=== PATIENT | female | born 1985 | race Caucasian/White ===

== ENCOUNTER 2019-10-18 15:21 | Emergency (ER) | payer BC ==
[2019-10-18] MEDS ORDERED: Sodium Chloride 0.9% 1,000 ML IV ONE (16:38)
[2019-10-18] MEDS ORDERED: Acetaminophen 500 MG Tab PO ONE (16:40)
[2019-10-18] MEDS ORDERED: Oseltamivir 75 MG Cap PO ONE (16:40)
[2019-10-18 17:35] LABS: BLOOD UREA NITROGEN,BUN 7 mg/dL (7.0-18.0); CARBON DIOXIDE,CO2 28.3 mmol/L (21.0-32.0); CHLORIDE,CL 98 mmol/L (98-107); GLUCOSE RANDOM 91 mg/dL (74-106); POTASSIUM,K 3.4 mmol/L (3.5-5.1); SODIUM,NA 136 mmol/L (136-145)
--- NOTE | 2019-10-18 18:49 | EDM.PDOC ---
ED [facility] GENERAL MEDICAL PROBLEM - General Chief Complaint: General Stated Complaint: 6 WEEKS PREG. COUGH FEVER Time Seen by Provider: 10/18/19 15:39 - History of Present Illness INITIAL COMMENTS - FREE TEXT/NARRATIVE: HPI 34-year-old female who was 6 weeks presents for evaluation of 3 days of fever, myalgias, mild cough, malaise, noted a brief period of dark brown spelling this morning. No influenza vaccine this year. Continues to take PO adequately produce light urine at baseline. Has taken no antipyretics. No history of multiple errors , PID, or IVF, notes one prior miscarriage, no other pregnancies. M/S/F/SocHx notable for: please see HPI; remainder reviewed with patient and in chart. ROS: Negative constitutional, eye, cardiovascular, pulmonary, GI, , MSK, skin , neurologic, psychiatric, endocrine unless noted in the HPI. Exam HR 114, RR 20, BP 123/72, T 36.1C, SaO2 97% on room air. Gen: Pleasant, non-toxic appearing, resting comfortably. HEENT: Normocephalic, atraumatic. * Eyes - Bilateral eyes without injection, swelling, or discharge, no proptosis or periorbital erythema, swelling, warmth, or tenderness. * Mouth - Anterior oropharynx with MMM, no lesions appreciated, floor of the mouth is soft and without swelling. Posterior oropharynx without swelling, exudate, erythema, lesions, or post-nasal drip, uvula midline. * Nose - Nares without crusting or discharge. * Neck - Neck supple without posterior anterior cervical chain lymphadenopathy bilaterally. Resp: Clear to auscultation bilaterally, normal work of breathing without accessory muscle usage. Card: Regular rate and rhythm with no murmurs, rubs or gallops. Extremities warm and well perfused. GI: Non-tender to palpation throughout all quadrants, no masses or organomegaly appreciated. : suprapubic tenderness to palpation. MSK: No visible deformities, strength and tone without visually appreciable deficit. Neuro: alert and oriented 3, no facial asymmetry, vision and hearing WNL. Heme/Lymph: Deferred Skin: Normal color with no visible lesions (other than noted above). Psych: Mood and affect appropriate. Labs / Imaging (pertinent): influenza B positive, influenza a negative, negative strep screen. WBC 4.09, Hb 14.9, Na 136, K 3.4 hCG 4370 UA - moderate occult blood, positive nitrite, negative leukocyte esterase, 3+ bacteria, rare epithelial cells, CXR: pending. Blood type: A+ MDM Previous chart, nursing note, and vitals reviewed. A: 34-year-old female who was 6 weeks presents for evaluation of 3 days of fever, myalgias, mild cough, malaise, noted a brief period of dark brown spelling this morning. DDx: influenza, parainfluenza virus, viral rhinosinusitis, bacterial pneumonia, septicemia. Evaluation: patient with mild tachycardia, otherwise appears well compensated ( by history, exam, and reported clinical trajectory). Influenza positive, while the patients had greater than 48 hours of symptoms Tamiflu is still indicated as she is . Patient was given 1 L normal saline, 1 g acetaminophen, and 75 mg Tamiflu which she tolerated well. History and exam without clear evidence of sepsis or clinically significant systemic symptoms, chest x-ray ordered and declined by patient (patient with insight and awareness as to risk versus benefits and made an informed decision to decline imaging). UA was notable for infection, patient is without flank pain, leukocytosis, dysuria, or frequency, as such suspect asymptomatic colonization, Keflex prescribed. With respect to spotting patient currently without any abdominal discomfort, no active spotting , and hCG that is below the detection threshold for transabdominal ultrasound ( which was noncontributory as noted below). Patient aware of limitations of evaluation, discuss pelvic exam, patient declined exam, given the absence of active symptomatology and available follow-up. 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 Impression: Fever, myalgias, cough.Influenza. (please reference below for remainder of encounter information) Focused Ultrasound Indication: (Evaluation of with abdominal pain vs Evaluation of with bleeding.) Exam type (limited): Transabdominal, initial Views obtained: Transabdominal sagittal and transabdominal transverse. Findings: uterus without clearly identifiable intrauterine . Interpretation: no definite intrauterine . Rib Cage Pain Score (Numeric/FACES): 7 - Related Data Allergies Allergy/AdvReac Type Severity Reaction Status Date / Time promethazine [From Phenergan] Allergy Hives Verified 10/18/19 15:36 Home Meds: Home Meds Cephalexin [Keflex] 500 mg PO QID 10 Days #40 capsule 10/18/19 [Rx] Oseltamivir [Tamiflu] 75 mg PO BID #9 cap 10/18/19 [Rx] Pnv No.95/Ferrous Fum/Folic AC [ Caplet] 1 each PO DAILY 10/18/19 [ History] Past Medical History Neurological History: Reports: MS - Infectious Disease History Infectious Disease History: Reports: Chicken Pox, Mononucleosis Social & Family History - Family History Family Medical History: Noncontributory - Tobacco Use Smoking Status *Q: Former Smoker Used Tobacco, but Quit: Yes Month/Year Tobacco Last Used: 2018 - Caffeine Use Caffeine Use: Reports: None - Recreational Drug Use Recreational Drug Use: No ED ROS GENERAL - Review of Systems Review Of Systems: See Below ED EXAM, GENERAL - Physical Exam Exam: See Below Course - Vital Signs Last Recorded V/S: Last Vital Signs Temp 36.1 C 10/18/19 15:37 Pulse 114 H 10/18/19 15:37 Resp 20 10/18/19 15:37 BP 123/72 10/18/19 15:37 Pulse Ox 97 10/18/19 15:37 - Orders/Labs/Meds Orders: Active Orders 24 hr Category Date Time Status CULTURE STREP A CONFIRMATION [RM] Stat Lab 10/18/19 15:54 Results STREP SCRN A RAPID W CULT CONF [RM] Stat Lab 10/18/19 15:54 Results Labs: Laboratory Tests 10/18/19 10/18/19 10/18/19 Range/Units 17:05 17:05 17:05 WBC 4.09 (4.0-11.0) K/uL RBC 4.88 (4.30-5.90) M/uL Hgb 14.5 (12.0-16.0) g/dL Hct 43.5 (36.0-46.0) % MCV 89.1 (80.0-98.0) fL MCH 29.7 (27.0-32.0) pg MCHC 33.3 (31.0-37.0) g/dL RDW Std Deviation 44.6 (28.0-62.0) fl RDW Coeff of Janina 14 (11.0-15.0) % Plt Count 271 (150-400) K/uL MPV 10.10 (7.40-12.00) fL Neut % (Auto) 58.9 (48.0-80.0) % Lymph % (Auto) 21.5 (16.0-40.0) % [place] % (Auto) 19.6 H (0.0-15.0) % Eos % (Auto) 0.0 (0.0-7.0) % Baso % (Auto) 0.0 (0.0-1.5) % Neut # (Auto) 2.4 (1.4-5.7) K/uL Lymph # (Auto) 0.9 (0.6-2.4) K/uL [place] # (Auto) 0.8 (0.0-0.8) K/uL Eos # (Auto) 0.0 (0.0-0.7) K/uL Baso # (Auto) 0.0 (0.0-0.1) K/uL Nucleated RBC % 0.0 /100WBC Nucleated RBCs # 0 K/uL Sodium (136-145) mmol/L Potassium (3.5-5.1) mmol/L Chloride (98-107) mmol/L Carbon Dioxide (21.0-32.0) mmol/L BUN (7.0-18.0) mg/dL Creatinine (0.6-1.0) mg/dL Est Cr Clr Drug Dosing mL/min Estimated GFR (MDRD) ml/min Glucose (74-106) mg/dL Calcium (8.5-10.1) mg/dL HCG, Quant 4370.0 mIU/mL Urine Color Urine Appearance Urine pH (5.0-8.0) Ur Specific [place] (1.001-1.035) Urine Protein (NEGATIVE) mg/dL Urine Glucose (UA) (NEGATIVE) mg/dL Urine Ketones (NEGATIVE) mg/dL Urine Occult Blood (NEGATIVE) Urine Nitrite (NEGATIVE) Urine Bilirubin (NEGATIVE) Urine Urobilinogen (<2.0) EU/dL Ur Leukocyte Esterase (NEGATIVE) Urine RBC (0-2/HPF) Urine WBC (0-5/HPF) Ur Epithelial Cells (NONE-FEW) Urine Bacteria (NEGATIVE) Blood Type A POSITIVE 10/18/19 10/18/19 Range/Units 17:05 17:30 WBC (4.0-11.0) K/uL RBC (4.30-5.90) M/uL Hgb (12.0-16.0) g/dL Hct (36.0-46.0) % MCV (80.0-98.0) fL MCH (27.0-32.0) pg MCHC (31.0-37.0) g/dL RDW Std Deviation (28.0-62.0) fl RDW Coeff of Janina (11.0-15.0) % Plt Count (150-400) K/uL MPV (7.40-12.00) fL Neut % (Auto) (48.0-80.0) % Lymph % (Auto) (16.0-40.0) % [place] % (Auto) (0.0-15.0) % Eos % (Auto) (0.0-7.0) % Baso % (Auto) (0.0-1.5) % Neut # (Auto) (1.4-5.7) K/uL Lymph # (Auto) (0.6-2.4) K/uL [place] # (Auto) (0.0-0.8) K/uL Eos # (Auto) (0.0-0.7) K/uL Baso # (Auto) (0.0-0.1) K/uL Nucleated RBC % /100WBC Nucleated RBCs # K/uL Sodium 136 (136-145) mmol/L Potassium 3.4 L (3.5-5.1) mmol/L Chloride 98 (98-107) mmol/L Carbon Dioxide 28.3 (21.0-32.0) mmol/L BUN 7 (7.0-18.0) mg/dL Creatinine 0.7 (0.6-1.0) mg/dL Est Cr Clr Drug Dosing 87.87 mL/min Estimated GFR (MDRD) > 60.0 ml/min Glucose 91 (74-106) mg/dL Calcium 8.7 (8.5-10.1) mg/dL HCG, Quant mIU/mL Urine Color YELLOW Urine Appearance SLT CLOUDY Urine pH 6.0 (5.0-8.0) Ur Specific [place] 1.015 (1.001-1.035) Urine Protein NEGATIVE (NEGATIVE) mg/dL Urine Glucose (UA) NEGATIVE (NEGATIVE) mg/dL Urine Ketones NEGATIVE (NEGATIVE) mg/dL Urine Occult Blood MODERATE H (NEGATIVE) Urine Nitrite POSITIVE H (NEGATIVE) Urine Bilirubin NEGATIVE (NEGATIVE) Urine Urobilinogen 0.2 (<2.0) EU/dL Ur Leukocyte Esterase NEGATIVE (NEGATIVE) Urine RBC 0-1 (0-2/HPF) Urine WBC 0-1 (0-5/HPF) Ur Epithelial Cells RARE (NONE-FEW) Urine Bacteria 3+ H (NEGATIVE) Blood Type Meds: Medications Discontinued Medications Generic Name Dose Route Start Last Admin Trade Name Freq PRN Reason Stop Dose Admin Acetaminophen 1,000 mg 10/18/19 16:40 10/18/19 17:07 Tylenol Extra Strength PO 10/18/19 16:41 1,000 mg ONETIME ONE Administration Sodium Chloride 1,000 mls @ 1,000 mls/hr 10/18/19 16:38 10/18/19 17:07 Normal Saline IV 10/18/19 17:37 1,000 mls/hr .Bolus ONE Administration Oseltamivir Phosphate 75 mg 10/18/19 16:40 10/18/19 17:08 Tamiflu PO 10/18/19 16:41 75 mg ONETIME ONE Administration Departure - Departure Time of Disposition: 18:46 Disposition: Home, Self-Care 01 Clinical Impression: Influenza, UTI (urinary tract infection) - Discharge Information Prescriptions: Cephalexin [Keflex] 500 mg PO QID 10 Days #40 capsule Oseltamivir [Tamiflu] 75 mg PO BID #9 cap Referrals: Elvin Shah MD [Primary Care Provider] - Forms: ED Department Discharge Additional Instructions: You were in seen in the [facility] Emergency Department for evaluation of fever, cough, malaise, your found have influenza and were incidentally noted to have bacteria in your urine, you have been prescribed Tamiflu for your influenza, cephalexin for your urinary tract infection, and you may take acetaminophen as directed below for treatment of fever and discomfort. Please read and follow all of the instructions below. Please follow up with your HOLLOW TILE PARTITION ERECTOR within 48 hours repeat evaluation further care as needed. When calling for follow-up care, please make the office aware that this follow-up is from your recent emergency room visit. If for any reason you are refused follow-up, please contact the [facility] Emergency Department at and asked to speak to the emergency department charge nurse. Your care today was limited to identifying and treating emergent medical problems only. Many people have subtle differences in their test results that require follow up with their outpatient physician(s) to correctly determine if this represents a normal variation or concerning abnormality with respect to your specific health. The care given to you today was limited to identifying and treating emergent medical problems - you need to request a copy of all of your medical records from today's visit and follow up with your outpatient physician(s) to review both today's visit and your overall health. If you have any new symptoms or if you are at all concerned about your health please return immediately to the emergency department. What is the flu? The flu is a viral infection that can cause fever, cough, body aches, and other symptoms. There are different forms of the flu, including the "seasonal" flu, the 2950-4228 pandemic H1N1 flu (also called the "swine" flu), and the bird flu. All forms of the flu are caused by viruses. The medical term for the flu is "influenza." All forms of the flu can cause fevers, cough, headaches or body aches, and a sore throat or runny nose. Return to the emergency department if you have any of the following: * Have trouble breathing or are short of breath * Feel pain or pressure in your chest or belly * Get suddenly dizzy * Feel confused * Have severe vomiting * If you are breathing fast, have trouble breathing, are if you turn blue or purple * If you are excessively fatigued you have difficulty waking up * If you start getting better from the flu but then have worsening sickness, this could represent a secondary bacterial infection. * If you develop a fever, rash, neck stiffness, headaches, or bright lights bother you. * If you are otherwise concerned about your health * If you decide to go to a walk-in clinic or a hospital because of the flu, tell someone right away why you are there. The staff might ask you to wear a mask or to wait someplace where you are less likely to spread your infection. Home Care The primary treatment for influenza is supportive care. Please stay well- hydrated, rest, consume a light diet, and - if you do not have any allergies or other reasons not to - you may take ibuprofen and acetaminophen as directed on the bottle for symptomatic relief from your fevers and aches. Do not go to work or school until your fever has been gone for at least 24 hours, without a taking fever-reducing medicine, such as acetaminophen or ibuprofen. If you work in a healthcare setting taking care of patients, you might need to stay home longer if you are still coughing. Also, always cover your mouth and nose with the inside of your elbow when you cough or sneeze. Prescriptions: If you are uninsured or have financial difficulties with filling your prescription(s), you may consider using a free pharmacy discount service such as [employer] ([employer]) or [employer] ([employer]). These services allow you to search for a medication on your phone (or computer) and obtain a coupon that usually has a significant discount from the list wu at a pharmacy. Your physician as well as [facility] does not have a financial relationship with either of these services. You may also wish to speak with your physician to determine if lower cost prescriptions are possible. Obtaining primary care: 1. provides pediatrics (children), family medicine (children, adults, and some obstetrical care), and internal medicine (adults). Further specialty care is also available. Same day appointments are available. They may be contacted at [phone] and are open Sunday through Sunday 8 AM to 5 PM. The [facility] are located at [facility], [address] [place], [place] [address]e [place], [place] [address]. 2. [facility] offers family medicine, internal medicine, womens health, and further specialty care. [facility] may be contacted at [phone]. [facility] is located at [address] [place] [address], [place], [address]. 3. If you have health insurance, please also contact your insurer for a list of accepting providers under your policy, you may contact these providers for further health care. Occupational health: Work related injuries may consider following up with [facility], . Occupational health services are located at [address] [place] [address] and are open Sunday through Sunday from 7: 30 am to 5:00 pm. Obstetrical and Gynecological Care: [facility], , Sunday through Sunday 8 AM to 5 PM. [address], [place] [address]. Eyecare: If you have an eye injury you should follow up with your adhesive bandage making operator or with [facility], at [phone] or [phone] , they are located at [address] [place] [address]. What is the flu? The flu is a viral infection that can cause fever, cough, body aches, and other symptoms. There are different forms of the flu, including the "seasonal" flu, the 0288-4323 pandemic H1N1 flu (also called the "swine" flu), and the bird flu. All forms of the flu are caused by viruses. The medical term for the flu is "influenza." All forms of the flu can cause fevers, cough, headaches or body aches, and a sore throat or runny nose. Return to the emergency department if you have any of the following: * Have trouble breathing or are short of breath * Feel pain or pressure in your chest or belly * Get suddenly dizzy * Feel confused * Have severe vomiting * If you are breathing fast, have trouble breathing, are if you turn blue or purple * If you are excessively fatigued you have difficulty waking up * If you start getting better from the flu but then have worsening sickness, this could represent a secondary bacterial infection. * If you develop a fever, rash, neck stiffness, headaches, or bright lights bother you. * If you are otherwise concerned about your health * If you decide to go to a walk-in clinic or a hospital because of the flu, tell someone right away why you are there. The staff might ask you to wear a mask or to wait someplace where you are less likely to spread your infection. Home Care The primary treatment for influenza is supportive care. Please stay well- hydrated, rest, consume a light diet, and - if you do not have any allergies or other reasons not to - you may acetaminophen as directed below for treatment of fever. If you work in a healthcare setting taking care of patients, you might need to stay home longer if you are still coughing. Also, always cover your mouth and nose with the inside of your elbow when you cough or sneeze. Acetaminophen (Tylenol) Please take 1,000 mg every 6 hours as needed for pain. Do no use with alcohol or other acetaminophen containing medications. SIDE EFFECTS: This drug usually has no side effects. If you do not have liver problems, the maximum dose of acetaminophen for adults is 4 grams per day (4000 milligrams). Taking more than the maximum daily amount may cause serious ( possibly fatal) liver damage. Get medical help right away if you have any of the following symptoms of liver damage: persistent nausea/vomiting, extreme tiredness, stomach/abdominal pain, yellowing eyes/skin, dark urine. If you have liver problems, consult your doctor or pharmacist for a safe dosage of this medication. A very serious allergic reaction to this drug is rare. However, get medical help right away if you notice any symptoms of a serious allergic reaction, including: rash, itching/swelling (especially of the face/tongue/ throat), severe dizziness, trouble breathing. This is not a complete list of possible side effects. If you notice other effects not listed above, contact your doctor or pharmacist. Oseltamivir (Brand Name: Tamiflu) Oseltamivir is used to treat symptoms caused by the influenza virus. It may help make the symptoms of influenza (such as stuffy nose, cough, sore throat, fever/chills, aches, tiredness) less severe and shortens the recovery time by 1- 2 days. This medication works by stopping the influenza virus from growing. It is not a substitute for the influenza vaccine. Oseltamivir How To Use: * Read the Patient Information Leaflet if available from your pharmacist before you start taking this medicine. If you have any questions, consult your doctor or pharmacist. Take this medication by mouth with or without food. * You may take it with food or milk to minimize stomach upset. Take this medication as soon as influenza symptoms appear or as soon as possible after you have been exposed to the influenza. Oseltamivir works best if you start taking it within 2 days of either of these events. If you have the influenza, take oseltamivir as directed by your doctor, usually twice a day for 5 days. * The dosage is based on your medical condition, kidney function, and response to treatment. In children the dosage is also based on weight. * This medication works best when the amount of medicine in your body is kept at a constant level. Therefore, take this drug at evenly spaced intervals at the same time(s) every day. * Continue to take it for the flexo press operator prescribed. Stopping the medication too early may allow the virus to continue to grow, which may result in a relapse of the infection or failure to protect you from the influenza. * Tell your doctor if your condition persists or worsens or if new symptoms appear. Oseltamivir - Side Effects: * Nausea and vomiting may occur. If either of these effects persist or worsen, notify your doctor or pharmacist promptly. * Remember that your doctor has prescribed this medication because he or she has judged that the benefit to you is greater than the risk of side effects. Many people using this medication do not have serious side effects. * The influenza itself or oseltamivir may rarely cause serious mental/mood changes. This may be more likely in children. Tell your doctor right away of any signs of unusual behavior, including: confusion, agitation, self-injury. * A very serious allergic reaction to this drug is rare. However, get medical help right away if you notice any symptoms of a serious allergic reaction, including: rash, itching/swelling (especially of the face/tongue/throat), severe dizziness, trouble breathing. This is not a complete list of possible side effects. If you notice other effects not listed above, contact your doctor or pharmacist. Oseltamivir Precautions: * Before taking oseltamivir, tell your doctor or pharmacist if you are allergic to it; or if you have any other allergies. This product may contain inactive ingredients, which can cause allergic reactions or other problems. Talk to your pharmacist for more details. * Before using this medication, tell your doctor or pharmacist your medical history, especially of: kidney disease (including dialysis treatment). * Before having surgery, tell your doctor or dentist about all the products you use (including prescription drugs, nonprescription drugs, and herbal products). * During , this medication should be used only when clearly needed. Discuss the risks and benefits with your doctor. * This medication passes into breast milk but is unlikely to harm a nursing infant. Consult your doctor before breast-feeding. Oseltamivir Drug Interactions: * Drug interactions may change how your medications work or increase your risk for serious side effects. This document does not contain all possible drug interactions. Keep a list of all the products you use (including prescription/ nonprescription drugs and herbal products) and share it with your doctor and pharmacist. Do not start, stop, or change the dosage of any medicines without your doctor's approval. * Tell your doctor if you have received influenza vaccine in the nose within 2 weeks before treatment with this medication. This medication may lower your protection from influenza vaccine given in the nose. Wait at least 2 days after ending treatment with this medication before receiving influenza vaccine given in the nose. Oseltamivir Missed Dose: * If you miss a dose, use it as soon as you remember. If it is within 2 hours of your next dose, skip the missed dose and resume your usual dosing schedule. Do not double the dose to catch up. Oseltamivir Storage: * Store at room temperature away from light and moisture. Do not store in the bathroom. Keep all medications away from children and pets. * Do not flush medications down the toilet or pour them into a drain unless instructed to do so. Properly discard this product when it is or no longer needed. Consult your pharmacist or local waste disposal company for more details about how to safely discard your product. Cephalexin (Brand Name: Keflex) Take as directed on the prescription. Take the full prescribed course of medications. SIDE EFFECTS: Diarrhea, dizziness, headache, or stomach upset may occur. If any of these effects persist or worsen, tell your doctor or pharmacist promptly. Tell your doctor immediately if any of these rare but very serious side effects occur: severe stomach/abdominal pain, persistent nausea/vomiting, yellowing eyes /skin, dark urine, change in the amount of urine, new signs of infection (e.g., fever, persistent sore throat), easy bruising/bleeding, mental/mood changes ( e.g., agitation, confusion). This medication may rarely cause a severe intestinal condition (Clostridium difficile-associated diarrhea) due to a resistant bacteria. This condition may occur during treatment or weeks to months after treatment has stopped. Tell your doctor immediately if you develop persistent diarrhea, abdominal or stomach pain/cramping, blood/mucus in your stool. Do not use anti-diarrhea products or narcotic pain medications if you have any of these symptoms because these products may make them worse. Use of this medication for prolonged or repeated periods may result in oral thrush or a new vaginal yeast infection. Contact your doctor if you notice white patches in your mouth, a change in vaginal discharge, or other new symptoms. A very serious allergic reaction to this drug is rare. However, seek immediate medical attention if you notice any symptoms of a serious allergic reaction, including: rash, itching/swelling (especially of the face/tongue/throat), severe dizziness , trouble breathing. This is not a complete list of possible side effects. If you notice other effects not listed above, contact your doctor or pharmacist. PRECAUTIONS: Before taking cephalexin, tell your doctor or pharmacist if you are allergic to it; or to penicillins or other cephalosporins (e.g., cefpodoxime ); or if you have any other allergies. This product may contain inactive ingredients, which can cause allergic reactions or other problems. Talk to your pharmacist for more details. Before using this medication, tell your doctor or pharmacist your medical history, especially of: kidney disease, stomach/ intestinal disease (e.g., colitis). This drug may make you dizzy. Do not drive, use machinery, or do any activity that requires alertness until you are sure you can perform such activities safely. Limit alcoholic beverages. The liquid form of this product may contain sugar. Caution is advised if you have diabetes. Ask your doctor or pharmacist about using this product safely. Kidney function declines as you grow older. This medication is removed by the kidneys. Therefore, older adults may be at greater risk for side effects while using this drug. During , this medication should be used only when clearly needed. Discuss the risks and benefits with your doctor. This medication passes into breast milk. Consult your doctor before breast-feeding. DRUG INTERACTIONS: Your doctor or pharmacist may already be aware of any possible drug interactions and may be monitoring you for them. Do not start, stop, or change the dosage of any medicine before checking with them first. Before using this medication, tell your doctor or pharmacist of all prescription and nonprescription/herbal products you may use, especially of: vaccines that contain live bacteria (e.g., typhoid, BCG), metformin, probenecid. This medication may decrease the effectiveness of combination-type control pills. This can result in . You may need to use an additional form of reliable control while using this medication. Consult your doctor or pharmacist for details. This medication may interfere with certain laboratory tests (including Dwaine' test, certain urine glucose tests), possibly causing false test results. Make sure laboratory personnel and all your doctors know you use this drug. This document does not contain all possible interactions. Therefore, before using this product, tell your doctor or pharmacist of all the products you use. Keep a list of all your medications with you, and share the list with your doctor and pharmacist. Sepsis Event Note - Evaluation Sepsis Screening Result: No Definite Risk - Focused Exam Vital Signs: Vital Signs Temp Pulse Resp BP Pulse Ox 10/18/19 15:37 36.1 C 114 H 20 123/72 97 Date Exam was Performed: 10/18/19 Time Exam was Performed: 18:46
== END 2019-10-18 19:10 | disposition home or self-care (01) ==
LOC: MW.ED 15:21
DX: O23.41 Unspecified infection of urinary tract in pregnancy, first trimester (principal); O98.511 Other viral diseases complicating pregnancy, first trimester; J11.1 Influenza due to unidentified influenza virus with other respiratory manifestations; Z87.891 Personal history of nicotine dependence; Z88.8 Allergy status to other drugs, medicaments and biological substances; Z3A.01 Less than 8 weeks gestation of pregnancy
CPT/HCPCS: 80048; 81001; 84702; 85025; 86900; 86901; 87081; 87804; 87880; 96360; 99283; A9270; J7030

== ENCOUNTER 2019-10-31 08:55 | Day surgery (SDC) | payer BC ==
[~2019-10-31 08:55] MED LIST: Doxycycline 100 MG Cap PO SCH; Lactated Ringers 1,000 ML IV SCH; Lidocaine 2% 5 ML SDV ONE; Midazolam 1 MG/ML 2 ML SDV ONE; Ondansetron 4 MG/2 ML SDV ONE; Propofol 200 MG/20 ML SDV ONE; fentaNYL 250 MCG/5 ML SDV ONE
[2019-10-31] MEDS ORDERED: Lidocaine 2% 5 ML SDV ONE (09:40)
--- NOTE | 2019-10-31 09:53 | PCM.PREANE ---
Preanesthetic Assessment - Anesthesia/Transfusion/Family Hx Anesthesia History: Prior Anesthesia Without Reaction Family History of Anesthesia Reaction: No Transfusion History: No Prior Transfusion(s) - Review of Systems General: No Symptoms Pulmonary: No Symptoms Cardiovascular: No Symptoms Gastrointestinal: No Symptoms Neurological: No Symptoms Other: Reports: None - Physical Assessment NPO Status Date: 10/30/19 Height: 5 ft 3 in Weight: 70.307 kg ASA Class: 2 Airway Class: Mallampati = 2 ROM/Head Extension: Full Lungs: Clear to Auscultation, Normal Respiratory Effort Cardiovascular: Regular Rate, Regular Rhythm - Lab Values: Laboratory Last Values WBC 11.80 K/uL (4.0-11.0) H 10/31/19 09:15 RBC 4.33 M/uL (4.30-5.90) 10/31/19 09:15 Hgb 12.6 g/dL (12.0-16.0) 10/31/19 09:15 Hct 37.9 % (36.0-46.0) 10/31/19 09:15 MCV 87.5 fL (80.0-98.0) 10/31/19 09:15 MCH 29.1 pg (27.0-32.0) 10/31/19 09:15 MCHC 33.2 g/dL (31.0-37.0) 10/31/19 09:15 RDW Std Deviation 43.6 fl (28.0-62.0) 10/31/19 09:15 RDW Coeff of Janina 14 % (11.0-15.0) 10/31/19 09:15 Plt Count 429 K/uL (150-400) H 10/31/19 09:15 MPV 9.80 fL (7.40-12.00) 10/31/19 09:15 Nucleated RBC % 0.0 /100WBC 10/31/19 09:15 Nucleated RBCs # 0 K/uL 10/31/19 09:15 - Allergies Allergies/Adverse Reactions: Allergies Allergy/AdvReac Type Severity Reaction Status Date / Time promethazine [From Phenergan] Allergy Hives Verified 10/30/19 11:53 - Blood Blood Available: No - Anesthesia Plan Pre-Op Medication Ordered: None - Acknowledgements Anesthesia Type Planned: General Anesthesia Pt an Appropriate Candidate for the Planned Anesthesia: Yes Alternatives and Risks of Anesthesia Discussed w Pt/Guardian: Yes Pt/Guardian Understands and Agrees with Anesthesia Plan: Yes Additional Comments: PMH: MS in remission, missed AB at 6-8 weeks PLAN: ga/lma with toradol PreAnesthesia Questionnaire HEENT History: Reports: Other (See Below) Other HEENT History: wears glasses, 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 Genitourinary History: Reports: Other (See Below) Other Genitourinary History: current UTI- taking antibiotics 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: , Therapeutic Neurological History: Reports: MS Other Neuro History: currently in remission- no medications Psychiatric History: Reports: Anxiety, Bipolar Other Psychiatric History: currently not taking medications - Infectious Disease History Infectious Disease History: Reports: Chicken Pox, Mononucleosis - Past Surgical History Head Surgeries/Procedures: Reports: None Female Surgical History: Reports: D&C - SUBSTANCE USE Smoking Status *Q: Former Smoker Tobacco Use Within Last Twelve Months: Vaping Recreational Drug Use History: Yes - HOME MEDS Home Medications: Home Meds Cephalexin [Keflex] 500 mg PO QID 10 Days #40 capsule 10/18/19 [Rx] Pnv No.95/Ferrous Fum/Folic AC [ Caplet] 1 each PO DAILY 10/18/19 [ History] - CURRENT (IN HOUSE) MEDS Current Meds: Current Medications Doxycycline Hyclate (Vibramycin) 200 mg PO ONETIME MALORIE Stop: 10/31/19 18:00 Lactated Ringer's (Ringers, Lactated) 1,000 mls @ 125 mls/hr IV ASDIRECTED MALORIE Discontinued Medications Fentanyl (Sublimaze) Confirm Administered Dose 250 mcg .ROUTE .STK-MED ONE Stop: 10/31/19 07:02 Lidocaine (Xylocaine-Mpf 2%) Confirm Administered Dose 5 ml .ROUTE .STK-MED ONE Stop: 10/31/19 07:02 Lidocaine (Xylocaine-Mpf 2%) Confirm Administered Dose 5 ml .ROUTE .STK-MED ONE Stop: 10/31/19 09:41 Midazolam HCl (Versed 1 Mg/Ml) Confirm Administered Dose 2 mg .ROUTE .STK-MED ONE Stop: 10/31/19 07:02 Ondansetron HCl (Zofran) Confirm Administered Dose 4 mg .ROUTE .STK-MED ONE Stop: 10/31/19 07:02 Propofol (Diprivan 20 Ml) Confirm Administered Dose 200 mg .ROUTE .[facility] ONE Stop: 10/31/19 07:02
[2019-10-31] MEDS ORDERED: 50% Dextrose in Water 50 ML Syringe IVPUSH PRN (11:04)
[2019-10-31] MEDS ORDERED: Naloxone 0.4 MG/ML Syringe IVPUSH PRN (11:04)
[2019-10-31] MEDS ORDERED: fentaNYL 100 MCG/2 ML SDV IVPUSH PRN (11:04)
[2019-10-31] MEDS ORDERED: EPINEPHrine 1:10,000 1 MG/10 ML Syringe IVPUSH PRN (11:04)
[2019-10-31] MEDS ORDERED: Albuterol 0.083% 2.5 MG/3 ML Neb Soln NEB PRN (11:04)
[2019-10-31] MEDS ORDERED: Atropine 0.1 MG/ML 10 ML Syringe IVPUSH PRN ×2 (11:04)
[2019-10-31] MEDS ORDERED: Ketorolac 15 MG/ML SDV IVPUSH ONE (11:28)
[2019-10-31] MEDS ORDERED: Acetaminophen/HYDROcodone 325-5 MG Tab PO PRN (11:28)
--- NOTE | 2019-10-31 11:43 | PCM.POSTAN ---
POST ANESTHESIA ASSESSMENT - MENTAL STATUS Mental Status: Alert - VITAL SIGNS Vital Signs: Last Vital Signs Temp 36.5 C 10/31/19 11:10 Pulse 82 10/31/19 11:35 Resp 12 10/31/19 11:35 BP 119/65 10/31/19 11:35 Pulse Ox 96 10/31/19 11:35 - RESPIRATORY Respiratory Status: Respiratory Rate WNL - CARDIOVASCULAR CV Status: Pulse Rate WNL - GASTROINTESTINAL GI Status: No Symptoms - POST OP HYDRATION Hydration Status: Adequate & Stable
--- NOTE | 2019-10-31 12:08 | OR ---
SURGEON: Elvin Shah MD DATE OF PROCEDURE: 10/31/2019 INDICATION: A 34-year-old, G2, P 0-0-1-0, female at approximately 6 weeks by last menstrual period, presenting with missed . She had ultrasound 2 weeks ago with gestational sac and yolk sac and without pole or heart rate. Repeat ultrasound showed again no growth in the fetus and continues to have no pole or heart rate. Nonviable was diagnosed at that time and expectant medical and surgical management options were offered, and the patient desired to have surgical management with D and C. PREOPERATIVE DIAGNOSIS: Missed . POSTOPERATIVE DIAGNOSIS: Missed . PROCEDURE PERFORMED: Suction, dilation, and curettage. FINDINGS: Uterus approximately 6-week size, anteverted, and mobile. Normal-appearing cervix and vagina. Products of conception removed from the uterine cavity and sent to pathology. ESTIMATED BLOOD LOSS: 200 mL. ANESTHESIA: General anesthesia. ANESTHESIOLOGIST: Dr. Hunter Trejo. DESCRIPTION OF PROCEDURE: The patient was taken to the operating room where she was placed in dorsal lithotomy position. Properly prepped and draped in sterile fashion. Under general anesthesia, bimanual exam revealed the uterus to be approximately 6 weeks, anteverted, and mobile. The cervix was exposed with a vaginal speculum and the anterior lip of the cervix was grasped with an Allis clamp. The cervix and vagina were normal appearing, without any lesions. The endocervical canal was already dilated and a Hegar dilator #7 was placed in the cervical os. Then a size #7 suction curette was connected to the suction under adequate pressure and placed in the cervix and advanced to the fundus. The suction curette was rotated slowly while being removed from the uterus and products of conception were removed. Three passes were made with the suction curettage. A gentle curettage was then done with a sharp curette. The uterus felt gritty and the bleeding was light. One additional pass was done with the suction curettage. The Allis clamp was then removed. The cervix was found to be hemostatic. Bleeding was minimal and the uterus was firm. The patient tolerated the procedure well and was awoken from anesthesia and brought to recovery room in stable condition. RAKESH / CHAPARRO /[id number]
--- NOTE | 2019-10-31 12:29 | PCM48HPAN ---
Post Anesthesia Note - EVALUATION WITHIN 48HRS OF ANESTHETIC Vital Signs in Normal Range: Yes Patient Participated in Evaluation: Yes Respiratory Function Stable: Yes Airway Patent: Yes Cardiovascular Function Stable: Yes Hydration Status Stable: Yes Pain Control Satisfactory: Yes Nausea and Vomiting Control Satisfactory: Yes Mental Status Recovered: Yes Vital Signs: Last Vital Signs Temp 97.7 F 10/31/19 11:10 Pulse 82 10/31/19 11:35 Resp 12 10/31/19 11:35 BP 119/65 10/31/19 11:35 Pulse Ox 96 10/31/19 11:35
== END 2019-10-31 13:05 | disposition home or self-care (01) ==
LOC: MW.SDS 08:55
PROVIDERS: ATTEND Obstetrics & Gynecology
DX: O02.1 Missed abortion (principal); F41.9 Anxiety disorder, unspecified; F31.9 Bipolar disorder, unspecified; Z87.891 Personal history of nicotine dependence
CPT/HCPCS: 36415; 59820; 85027; 86850; 86900; 86901; A9270; J2001; J2250; J2405; J2704; J3010; J7120

== ENCOUNTER 2019-11-08 16:55 | Emergency (ER) | payer BC ==
--- NOTE | 2019-11-08 17:11 | EDM.PDOC ---
ED HPI GENERAL MEDICAL PROBLEM - General Chief Complaint: Eye Problems Stated Complaint: LT EYE ISSUES Time Seen by Provider: 11/08/19 17:07 Source of Information: Reports: Patient History Limitations: Reports: No Limitations - History of Present Illness INITIAL COMMENTS - FREE TEXT/NARRATIVE: HISTORY AND PHYSICAL: History of present illness: Patient is a 34-year-old female who presents to the emergency room today with complaints of left upper cheek swelling and discomfort with palpation. She states she woke up this morning with obvious swelling to the left cheek when she looked in the mirror. She initially thought maybe she had a dental abscess but does not have any dental pain mild gumline swelling. She does complain of some maxillary sinus tenderness. This swelling does not involve the orbit nor does it impede in her vision. No pain with ocular movement. Denies any injury trauma or falls. Offers no systemic complaints. Review of systems: As per history of present illness and below otherwise all systems reviewed and negative. Past medical history: As per history of present illness and as reviewed below otherwise noncontributory. Surgical history: As per history of present illness and as reviewed below otherwise noncontributory. Social history: See social history for further information Family history: As per history of present illness and as reviewed below otherwise noncontributory. Physical exam: General: Well-developed and well-nourished 34-year-old female. Alert and oriented. Nontoxic-appearing and in no acute distress HEENT: Atraumatic, normocephalic, pupils equal and reactive bilaterally, negative for conjunctival pallor or scleral icterus, mucous membranes moist, left-sided maxillary sinus tenderness with mild swelling noted, TMs normal bilaterally, throat clear, neck supple, nontender, trachea midline. No drooling or trismus noted. No meningeal signs. No hot potato voice noted. Lungs: Clear to auscultation, breath sounds equal bilaterally, chest nontender. Heart: S1S2, regular rate and rhythm without overt murmur Abdomen: Soft, nondistended, nontender. Skin: Intact, warm, pink, dry. No lesions or rashes noted. Extremities: Atraumatic, moves all extremities per self without difficulty or deficits, negative for cords or calf pain. Neurovascular unremarkable. Neuro: Awake, alert, oriented. Cranial nerves II through XII unremarkable. Cerebellum unremarkable. Motor and sensory unremarkable throughout. Exam nonfocal. Notes: The soft tissue swelling has no external erythema or fluctuance noted. This could be the early start of a dental abscess or sinusitis. We discussed doing lab work along with imaging which she declines at this time. We will initiate some oral antibiotics and have her closely follow-up with her primary care provider Supportive care measures were reviewed and discussed. Voices understanding and is agreeable to plan of care. Denies any further questions or concerns at this time. Diagnostics: Declines Therapeutics: None Prescription: Clindamycin, Medrol Dosepak Impression: Sinusitis Plan: 1. Take the medications as prescribed. 2. May alternate Tylenol and ibuprofen as needed for pain. 3. Please follow-up with your primary care provider as we discussed. 4. If symptoms should improve, worsen, new symptoms develop please return to the emergency room for further evaluation as we discussed. Definitive disposition and diagnosis as appropriate pending reevaluation and review of above. Left Upper Cheek Pain Score (Numeric/FACES): 5 - Related Data Allergies Allergy/AdvReac Type Severity Reaction Status Date / Time promethazine [From Phenergan] Allergy Hives Verified 11/08/19 17:14 Home Meds: Home Meds . 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 Genitourinary History: Reports: Other (See Below) Other Genitourinary History: current UTI- taking antibiotics [employer] History: Reports: , Therapeutic Neurological History: Reports: MS Other Neuro History: currently in remission- no medications Psychiatric History: Reports: Anxiety, Bipolar Other Psychiatric History: currently not taking medications - Infectious Disease History Infectious Disease History: Reports: Chicken Pox, Mononucleosis - Past Surgical History Head Surgeries/Procedures: Reports: None Female Surgical History: Reports: D&C Social & Family History - Family History Family Medical History: Noncontributory - Caffeine Use Caffeine Use: Reports: None ED ROS GENERAL - Review of Systems Review Of Systems: Comprehensive ROS is negative, except as noted in HPI. ED EXAM GENERAL W FULL EYE - Physical Exam Exam: See Below (See dictation) Course - Vital Signs Last Recorded V/S: Last Vital Signs Temp 98.6 F 11/08/19 17:30 Pulse 89 11/08/19 17:30 Resp 16 11/08/19 17:30 BP 118/55 L 11/08/19 17:30 Pulse Ox 97 11/08/19 17:30 Departure - Departure Time of Disposition: 17:18 Disposition: Home, Self-Care 01 Clinical Impression: Sinusitis Qualifiers: Sinusitis location: maxillary Chronicity: acute Recurrence: non-recurrent Qualified Code(s): J01.00 - Acute maxillary sinusitis, unspecified - Discharge Information Instructions: Sinusitis, Adult, [id number] Referrals: PCP,None [Primary Care Provider] - Forms: ED Department Discharge Additional Instructions: The following information is given to patients seen in the emergency department who are being discharged to home. This information is to outline your options for follow-up care. We provide all patients seen in our emergency department with a follow-up referral. The need for follow-up, as well as the timing and circumstances, are variable depending upon the specifics of your emergency department visit. If you don't have a primary care physician on staff, we will provide you with a referral. We always advise you to contact your personal physician following an emergency department visit to inform them of the circumstance of the visit and for follow-up with them and/or the need for any referrals to a consulting specialist. The emergency department will also refer you to a specialist when appropriate. This referral assures that you have the opportunity for follow-up care with a specialist. All of these measure are taken in an effort to provide you with optimal care, which includes your follow-up. Under all circumstances we always encourage you to contact your private physician who remains a resource for coordinating your care. When calling for follow-up care, please make the office aware that this follow-up is from your recent emergency room visit. If for any reason you are refused follow-up, please contact the [facility] at and asked to speak to the emergency department charge nurse. [facility] [address] [place] [id number] [address] 1. Take the medications as prescribed. 2. May alternate Tylenol and ibuprofen as needed for pain. 3. Please follow-up with your primary care provider as we discussed. 4. If symptoms should improve, worsen, new symptoms develop please return to the emergency room for further evaluation as we discussed. Sepsis Event Note - Focused Exam Vital Signs: Vital Signs Temp Pulse Resp BP Pulse Ox 11/08/19 17:30 98.6 F 89 16 118/55 L 97 11/08/19 17:05 98.5 F 91 119/62 96 Date Exam was Performed: 11/08/19 Time Exam was Performed: 20:49
== END 2019-11-08 17:32 | disposition home or self-care (01) ==
LOC: MW.ED 16:55
DX: J01.00 Acute maxillary sinusitis, unspecified (principal); Z88.8 Allergy status to other drugs, medicaments and biological substances
CPT/HCPCS: 99283

== ENCOUNTER 2020-06-07 17:47 | Emergency (ER) | payer BC ==
--- NOTE | 2020-06-07 17:58 | EDM.PDOC ---
ED HPI GENERAL MEDICAL PROBLEM - General Chief Complaint: ENT Problem Stated Complaint: POSSIBLE EAR INFECTION Time Seen by Provider: 06/07/20 17:57 Source of Information: Reports: Patient History Limitations: Reports: No Limitations - History of Present Illness INITIAL COMMENTS - FREE TEXT/NARRATIVE: HISTORY AND PHYSICAL: History of present illness: Patient is a 35-year-old female who presents to the emergency room with complaints of right ear pain and pressure. States the pain radiates into her temporal/sinus area. Patient denies any fever, chills, headache, change in v ision, syncope or near syncope. Denies any chest pain, back pain, shortness of breath or cough. Denies any abdominal pain, nausea, vomiting, diarrhea, constipation or dysuria. Has not noted any blood in urine or stool. Patient has been eating and drinking appropriately. Review of systems: As per history of present illness and below otherwise all systems reviewed and negative. Past medical history: As per history of present illness and as reviewed below otherwise noncontributory. Surgical history: As per history of present illness and as reviewed below otherwise noncontributory. Social history: See social history for further information Family history: As per history of present illness and as reviewed below otherwise noncontributory. Physical exam: General: Well developed and well nourished 35-year-old female. Alert and orientated x 3. Nontoxic in appearance and in no acute distress. Vital signs are stable and have been reviewed by me. Nursing notes were reviewed. HEENT: Atraumatic, normocephalic, pupils equal and reactive bilaterally, negative for conjunctival pallor or scleral icterus, mucous membranes moist, TMs normal on left, right TM is mildly erythematous with effusion noted. Throat clear, neck supple, nontender, trachea midline. No Temporal tenderness or redness. No drooling or trismus noted. No meningeal signs. No hot potato voice noted. Lungs: Clear to auscultation, breath sounds equal bilaterally, chest nontender. Normal work of breathing, no accessory muscles used. Heart: S1S2, regular rate and rhythm without overt murmur Abdomen: Soft, nondistended, nontender. Skin: Intact, warm, dry. No lesions or rashes noted. Hematologic: No petechiae or purpra. Mucosa appropriate color and normal nail bed color and refill. Extremities: Atraumatic, moves all extremities per self without difficulty or deficits, negative for cords or calf pain. Neurovascular unremarkable. Neuro: Awake, alert, oriented. Cranial nerves II through XII unremarkable. Cerebellum unremarkable. Motor and sensory unremarkable throughout. Exam nonfocal. Psychiatric: Mood and affect are appropriate. Normal thought process. Answering questions appropriately. Notes: We discussed signs and symptoms that would prompt them to return to the Emergency Department. Medication, follow up and supportive care measures were reviewed and discussed. Voices understanding and is agreeable to plan of care. Denies any further questions or concerns at this time. Diagnostics: None Therapeutics: None Prescription: Augmentin Impression: Otitis Media Plan: 1. Today your physical exam shows a fluid build up behind the ear. You can take an antihistamine for pressure relief. We always encourage you to follow up with your primary care provider or recommended specialist in the next few days for re-evaluation and further care/management. If your symptoms should worsen, new symptoms develop or any of the signs and symptoms we discussed should arise please return to the emergency room or call 911 (if needed). 2. Avoid placing anything in the ear canal while its healing. 3. You can alternate Tylenol and/or ibuprofen as needed for pain management. Definitive disposition and diagnosis as appropriate pending reevaluation and review of above. 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: , Therapeutic Neurological History: Reports: MS 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 ED EXAM, ENT - Physical Exam Exam: See Below (See dictation) Course - Vital Signs Last Recorded V/S: Last Vital Signs Temp 97.2 F 06/07/20 17:58 Pulse 87 06/07/20 17:58 Resp 16 06/07/20 17:58 BP 114/75 06/07/20 17:58 Pulse Ox 98 06/07/20 17:58 Departure - Departure Time of Disposition: 18:08 Disposition: Home, Self-Care 01 Clinical Impression: Otitis media Qualifiers: Otitis media type: serous Chronicity: acute Laterality: right Recurrence: non- recurrent Qualified Code(s): H65.01 - Acute serous otitis media, right ear - Discharge Information Prescriptions: Amoxicillin/Clavulanate K [Augmentin 875-125 MG] 1 tab PO BID 10 Days #20 tablet Instructions: Otitis Media, Adult, [id number] Referrals: PCP,None [Primary Care Provider] - Forms: ED Department Discharge Additional Instructions: The following information is given to patients seen in the emergency department who are being discharged to home. This information is to outline your options for follow-up care. We provide all patients seen in our emergency department with a follow-up referral. The need for follow-up, as well as the timing and circumstances, are variable depending upon the specifics of your emergency department visit. If you don't have a primary care physician on staff, we will provide you with a referral. We always advise you to contact your personal physician following an emergency department visit to inform them of the circumstance of the visit and for follow-up with them and/or the need for any referrals to a consulting specialist. The emergency department will also refer you to a specialist when appropriate. This referral assures that you have the opportunity for follow-up care with a specialist. All of these measure are taken in an effort to provide you with optimal care, which includes your follow-up. Under all circumstances we always encourage you to contact your private physician who remains a resource for coordinating your care. When calling for follow-up care, please make the office aware that this follow-up is from your recent emergency room visit. If for any reason you are refused follow-up, please contact the [facility] Emergency Department at and asked to speak to the emergency department charge nurse. [facility] [address] [place] [address] [facility] [address] [place] [id number] Thank you for choosing the [facility] emergency department in [place] for your medical needs today. It was a pleasure caring for you. Today you were seen in the emergency department for ear pain and pressure. 1. Today your physical exam shows a fluid build up behind the ear. You can take an antihistamine for pressure relief. We always encourage you to follow up with your primary care provider or recommended specialist in the next few days for re-evaluation and further care/management. If your symptoms should worsen, new symptoms develop or any of the signs and symptoms we discussed should arise please return to the emergency room or call 911 (if needed). 2. Avoid placing anything in the ear canal while its healing. 3. You can alternate Tylenol and/or ibuprofen as needed for pain management. Sepsis Event Note (ED) - Focused Exam Vital Signs: Vital Signs Temp Pulse Resp BP Pulse Ox 06/07/20 17:58 97.2 F 87 16 114/75 98
== END 2020-06-07 18:16 | disposition home or self-care (01) ==
LOC: MW.ED 17:47
DX: H65.01 Acute serous otitis media, right ear (principal); Z88.8 Allergy status to other drugs, medicaments and biological substances
CPT/HCPCS: 99282

== ENCOUNTER 2020-10-15 23:04 | Emergency (ER) | payer BC ==
--- NOTE | 2020-10-15 23:08 | EDM.PDOC ---
ED HPI GENERAL MEDICAL PROBLEM - General Chief Complaint: IMMIGRATION COORDINATOR Problem Stated Complaint: POSSIBLE MISCARRIAGE Time Seen by Provider: 10/15/20 23:32 Source of Information: Reports: Patient - History of Present Illness INITIAL COMMENTS - FREE TEXT/NARRATIVE: 35-year-old female approximately 8 weeks and 5 days LMP late July presents for vaginal spotting and lower abdominal cramping pains. 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 She states that she had some cramping pains last week, but bleeding started today and cramping pains worsened. Reminiscent of prior miscarriages. Denies any passage of clots or tissue. She has seen her IMMIGRATION COORDINATOR via teledoc appointment but has not yet had an in person appointment or ultrasound of this . That is scheduled for Sunday. 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: , Therapeutic Neurological History: Reports: MS Other Neuro History: currently in remission- 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 ED EXAM, GENERAL - Physical Exam Exam: See Below Exam Limited By: No Limitations General Appearance: Alert, WD/WN, No Apparent Distress Throat/Mouth: Normal Voice, No Airway Compromise Head: Atraumatic, Normocephalic Neck: Normal Inspection Respiratory/Chest: No Respiratory Distress, Lungs Clear, Normal Breath Sounds, No Accessory Muscle Use Cardiovascular: Normal Peripheral Pulses, Regular Rate, Rhythm GI/Abdominal: Soft, Non-Tender (Female) Exam: Normal External Exam, Normal Speculum Exam, Normal Bimanual Exam, Other (small amount of dried blood posterior vaginal vault w/o active bleeding). No: Adnexal Mass, Adnexal Tenderness, Cervical Dilatation Extremities: Normal Inspection Neurological: Alert Psychiatric: Normal Affect, Normal Mood Skin Exam: Warm, Dry, Intact, Normal Color Course - Vital Signs Last Recorded V/S: Last Vital Signs Temp 98.4 F 10/15/20 23:34 Pulse 100 10/15/20 23:34 Resp 18 10/15/20 23:34 BP 125/74 10/15/20 23:34 Pulse Ox 96 10/15/20 23:34 - Orders/Labs/Meds Orders: Active Orders 24 hr Category Date Time Status Sodium Chloride 0.9% [Saline Flush] Med 10/15/20 23:22 Active 10 ml FLUSH ASDIRECTED PRN Sodium Chloride 0.9% [Saline Flush] Med 10/15/20 23:22 Active 2.5 ml FLUSH ASDIRECTED PRN Saline Lock Insert [OM.PC] Stat Oth 10/15/20 23:22 Ordered Medication Orders Sodium Chloride (Saline Flush) 10 ml FLUSH ASDIRECTED PRN PRN Reason: Keep Vein Open Sodium Chloride (Saline Flush) 2.5 ml FLUSH ASDIRECTED PRN PRN Reason: Keep Vein Open Labs: Laboratory Tests 10/15/20 10/16/20 10/16/20 Range/Units 23:30 00:00 00:00 WBC 11.00 (4.0-11.0) K/uL RBC 4.60 (4.30-5.90) M/uL Hgb 13.6 (12.0-16.0) g/dL Hct 40.5 (36.0-46.0) % MCV 88.0 (80.0-98.0) fL MCH 29.6 (27.0-32.0) pg MCHC 33.6 (31.0-37.0) g/dL RDW Std Deviation 42.0 (28.0-62.0) fl RDW Coeff of Janina 13 (11.0-15.0) % Plt Count 296 (150-400) K/uL MPV 10.60 (7.40-12.00) fL Neut % (Auto) 64.3 (48.0-80.0) % Lymph % (Auto) 25.4 (16.0-40.0) % Rincon % (Auto) 9.1 (0.0-15.0) % Eos % (Auto) 1.1 (0.0-7.0) % Baso % (Auto) 0.1 (0.0-1.5) % Neut # (Auto) 7.1 H (1.4-5.7) K/uL Lymph # (Auto) 2.8 H (0.6-2.4) K/uL Rincon # (Auto) 1.0 H (0.0-0.8) K/uL Eos # (Auto) 0.1 (0.0-0.7) K/uL Baso # (Auto) 0.0 (0.0-0.1) K/uL Nucleated RBC % 0.0 /100WBC Nucleated RBCs # 0 K/uL Sodium 136 (136-145) mmol/L Potassium 3.9 (3.5-5.1) mmol/L Chloride 102 (98-107) mmol/L Carbon Dioxide 17.6 L (21.0-32.0) mmol/L BUN 10 (7.0-18.0) mg/dL Creatinine 0.7 (0.6-1.0) mg/dL Est Cr Clr Drug Dosing 89.03 mL/min Estimated GFR (MDRD) > 60.0 ml/min Glucose 91 (74-106) mg/dL Calcium 9.9 (8.5-10.1) mg/dL Total Bilirubin 0.2 (0.2-1.0) mg/dL AST 28 (15-37) IU/L ALT 50 (14-63) IU/L Alkaline Phosphatase 67 (46-116) U/L Total Protein 7.3 (6.4-8.2) g/dL Albumin 3.6 (3.4-5.0) g/dL Globulin 3.7 (2.6-4.0) g/dL Albumin/Globulin Ratio 1.0 (0.9-1.6) HCG, Quant mIU/mL Urine Color YELLOW Urine Appearance SLT CLOUDY Urine pH 6.5 (5.0-8.0) Ur Specific Zebulon 1.025 (1.001-1.035) Urine Protein NEGATIVE (NEGATIVE) mg/dL Urine Glucose (UA) NEGATIVE (NEGATIVE) mg/dL Urine Ketones NEGATIVE (NEGATIVE) mg/dL Urine Occult Blood TRACE-INTACT H (NEGATIVE) Urine Nitrite NEGATIVE (NEGATIVE) Urine Bilirubin NEGATIVE (NEGATIVE) Urine Urobilinogen 1.0 (<2.0) EU/dL Ur Leukocyte Esterase NEGATIVE (NEGATIVE) Urine RBC 1-3 (0-2/HPF) Urine WBC 0-1 (0-5/HPF) Ur Epithelial Cells FEW (NONE-FEW) Urine Bacteria FEW (NEGATIVE) Urine Mucus LIGHT (NONE-MOD) Blood Type 10/16/20 10/16/20 Range/Units 00:00 00:00 WBC (4.0-11.0) K/uL RBC (4.30-5.90) M/uL Hgb (12.0-16.0) g/dL Hct (36.0-46.0) % MCV (80.0-98.0) fL MCH (27.0-32.0) pg MCHC (31.0-37.0) g/dL RDW Std Deviation (28.0-62.0) fl RDW Coeff of Janina (11.0-15.0) % Plt Count (150-400) K/uL MPV (7.40-12.00) fL Neut % (Auto) (48.0-80.0) % Lymph % (Auto) (16.0-40.0) % Rincon % (Auto) (0.0-15.0) % Eos % (Auto) (0.0-7.0) % Baso % (Auto) (0.0-1.5) % Neut # (Auto) (1.4-5.7) K/uL Lymph # (Auto) (0.6-2.4) K/uL Rincon # (Auto) (0.0-0.8) K/uL Eos # (Auto) (0.0-0.7) K/uL Baso # (Auto) (0.0-0.1) K/uL Nucleated RBC % /100WBC Nucleated RBCs # K/uL Sodium (136-145) mmol/L Potassium (3.5-5.1) mmol/L Chloride (98-107) mmol/L Carbon Dioxide (21.0-32.0) mmol/L BUN (7.0-18.0) mg/dL Creatinine (0.6-1.0) mg/dL Est Cr Clr Drug Dosing mL/min Estimated GFR (MDRD) ml/min Glucose (74-106) mg/dL Calcium (8.5-10.1) mg/dL Total Bilirubin (0.2-1.0) mg/dL AST (15-37) IU/L ALT (14-63) IU/L Alkaline Phosphatase (46-116) U/L Total Protein (6.4-8.2) g/dL Albumin (3.4-5.0) g/dL Globulin (2.6-4.0) g/dL Albumin/Globulin Ratio (0.9-1.6) HCG, Quant 189232.0 mIU/mL Urine Color Urine Appearance Urine pH (5.0-8.0) Ur Specific Zebulon (1.001-1.035) Urine Protein (NEGATIVE) mg/dL Urine Glucose (UA) (NEGATIVE) mg/dL Urine Ketones (NEGATIVE) mg/dL Urine Occult Blood (NEGATIVE) Urine Nitrite (NEGATIVE) Urine Bilirubin (NEGATIVE) Urine Urobilinogen (<2.0) EU/dL Ur Leukocyte Esterase (NEGATIVE) Urine RBC (0-2/HPF) Urine WBC (0-5/HPF) Ur Epithelial Cells (NONE-FEW) Urine Bacteria (NEGATIVE) Urine Mucus (NONE-MOD) Blood Type A POSITIVE Meds: Medications Generic Name Dose Route Start Last Admin Trade Name Freq PRN Reason Stop Dose Admin Sodium Chloride 10 ml 10/15/20 23:22 Saline Flush FLUSH ASDIRECTED PRN Keep Vein Open Sodium Chloride 2.5 ml 10/15/20 23:22 Saline Flush FLUSH ASDIRECTED PRN Keep Vein Open - Re-Assessments/Exams Free Text/Narrative Re-Assessment/Exam: 10/15/20 23:33 We will get labs including quantitative beta-hCG. Will get urinalysis. Will get pelvic ultrasound to assess for ectopic versus normal versus miscarriage. 10/16/20 01:59 Ultrasound unremarkable. Will discharge patient with return precautions with OB follow-up on Sunday. Departure - Departure Time of Disposition: 01:59 Disposition: Home, Self-Care 01 Condition: Good Clinical Impression: Vaginal bleeding during - Discharge Information Instructions: Vaginal Bleeding During , First Trimester Referrals: PCP,None [Primary Care Provider] - Forms: ED Department Discharge Additional Instructions: Your beta hCG level is 927262. Your ultrasound reveals evidence of a live intrauterine . You should follow-up with your IMMIGRATION COORDINATOR on Sunday. The following information is given to patients seen in the emergency department who are being discharged to home. This information is to outline your options for follow-up care. We provide all patients seen in our emergency department with a follow-up referral. The need for follow-up, as well as the timing and circumstances, are variable depending upon the specifics of your emergency department visit. If you don't have a primary care physician on staff, we will provide you with a referral. We always advise you to contact your personal physician following an emergency department visit to inform them of the circumstance of the visit and for follow-up with them and/or the need for any referrals to a consulting specialist. The emergency department will also refer you to a specialist when appropriate. This referral assures that you have the opportunity for follow-up care with a specialist. All of these measure are taken in an effort to provide you with optimal care, which includes your follow-up. Under all circumstances we always encourage you to contact your private physician who remains a resource for coordinating your care. When calling for follow-up care, please make the office aware that this follow-up is from your recent emergency room visit. If for any reason you are refused follow-up, please contact the [facility] Emergency Department at and asked to speak to the emergency department charge nurse. Please follow up with your primary care physician. If you do not have a primary care physician, see below: [facility] [address] [place] [id number] My [facility] [address] [place] [id number] Sepsis Event Note (ED) - Focused Exam Vital Signs: Vital Signs Temp Pulse Resp BP Pulse Ox 10/15/20 23:34 98.4 F 100 18 125/74 96 - My Orders Last 24 Hours: My Active Orders 10/15/20 23:22 Sodium Chloride 0.9% [Saline Flush] 10 ml FLUSH ASDIRECTED PRN Sodium Chloride 0.9% [Saline Flush] 2.5 ml FLUSH ASDIRECTED PRN Saline Lock Insert [OM.PC] Stat - Assessment/Plan Last 24 Hours: My Active Orders 10/15/20 23:22 Sodium Chloride 0.9% [Saline Flush] 10 ml FLUSH ASDIRECTED PRN Sodium Chloride 0.9% [Saline Flush] 2.5 ml FLUSH ASDIRECTED PRN Saline Lock Insert [OM.PC] Stat
[2020-10-15] MEDS ORDERED: Sodium Chloride 0.9% 10 ML Syringe FLUSH PRN (23:22)
[2020-10-15] MEDS ORDERED: Sodium Chloride 0.9% 2.5 ML Syringe FLUSH PRN (23:22)
[2020-10-16 01:10] LABS: BLOOD UREA NITROGEN,BUN 10 mg/dL (7.0-18.0); CARBON DIOXIDE,CO2 17.6 mmol/L (21.0-32.0); GLUCOSE RANDOM 91 mg/dL (74-106)
[2020-10-16 01:11] LABS: CHLORIDE,CL 102 mmol/L (98-107); POTASSIUM,K 3.9 mmol/L (3.5-5.1); SODIUM,NA 136 mmol/L (136-145)
--- NOTE | 2020-10-16 01:57 | US ---
Indication: Abdominal pain, rule out ectopic Technique: Multiple grayscale and Doppler sonographic images of the pelvis. Scanning was performed transvaginally. Comparison: None Findings: There is a single live intrauterine gestation with crown-rump length of 2.54 cm, corresponding to approximate gestational age of 9 weeks 2 days. A heart beat is detected with rate of 163 beats per minute. There is otherwise normal sonographic appearance of the uterus. The cervix is closed. Small nabothian cyst is noted. The right ovary measures 5.0 x 3.6 x 3.9 cm and contains a 3.2 cm cystic focus. The left ovary measures 4.1 x 1.7 x 4.3 cm and contains a 1.8 cm cystic focus. Intact vascular flow is demonstrated to both ovaries with spectral Doppler. There is no suspicious adnexal mass. No significant free fluid seen in the pelvic cul-de-sac. Impression: 1. Iniguez intrauterine with approximate age of 9 weeks 2 days and heart rate of 163 bpm 2. Nonspecific small ovarian cystic foci bilaterally, likely physiologic. 3. No evidence of ectopic . Dictated by Lily Brito MD @ Oct 16 2020 1:47AM Signed by Dr. Lily Brito @ Oct 16 2020 1:55AM
== END 2020-10-16 02:15 | disposition home or self-care (01) ==
LOC: MW.ED 23:04
DX: O20.9 Hemorrhage in early pregnancy, unspecified (principal); G35 Multiple sclerosis; Z88.8 Allergy status to other drugs, medicaments and biological substances; Z3A.08 8 weeks gestation of pregnancy
CPT/HCPCS: 36415; 76813; 76816-26; 80053; 81001; 84702; 85025; 86900; 86901; 99282; 99284-25

== ENCOUNTER 2021-05-22 20:24 | Inpatient (IN) | payer MEDICAID, MEDICARE ==
[2021-05-22] MEDS ORDERED: Terbutaline 1 MG/ML SDV SUBCUT PRN (21:15)
[2021-05-22] MEDS ORDERED: Methylergonovine 0.2 MG/1 ML Amp IM PRN (21:15)
[2021-05-22] MEDS ORDERED: Misoprostol 200 MCG Tab PO PRN (21:15)
[2021-05-22] MEDS ORDERED: Nalbuphine 10 MG/1 ML Vial IVPUSH PRN (21:15)
[2021-05-22] MEDS ORDERED: Carboprost Tromethamine 250 MCG/1 ML Amp IM PRN (21:15)
[2021-05-22] MEDS ORDERED: Sodium Chloride 0.9% 2.5 ML Syringe FLUSH PRN (21:15)
[2021-05-22] MEDS ORDERED: Misoprostol 25 MCG (1/4 of 100 MCG) Tab VAG PRN (21:15)
[2021-05-22] MEDS ORDERED: Water For Irrigation,Sterile 1,000 ML Container IRR PRN (21:15)
[2021-05-22] MEDS ORDERED: Tranexamic Acid 1,000 MG in Sodium Chloride 0.9% 100 ML IV PRN (21:15)
[2021-05-22] MEDS ORDERED: Sodium Chloride 0.9% 10 ML SDV IV PRN (21:15)
[2021-05-22] MEDS ORDERED: Oxytocin/0.9 % Sodium Chloride 30 UNIT/500 ML BAG IV SCH ×2 (21:15)
[2021-05-22] MEDS ORDERED: Lidocaine 1% 50 ML MDV INJECT PRN (21:15)
[2021-05-22] MEDS ORDERED: Sodium Chloride 0.9% 10 ML Syringe FLUSH PRN (21:15)
[2021-05-22] MEDS ORDERED: Butorphanol 1 MG/ML SDV IVPUSH PRN (21:15)
[2021-05-22] MEDS ORDERED: Ondansetron 4 MG/2 ML SDV IVPUSH PRN (21:27)
[2021-05-22] MEDS ORDERED: Ampicillin 2 GM in Sodium Chloride 0.9% 100 ML IV ONE (21:27)
[2021-05-22] MEDS: Misoprostol 25 MCG (1/4 of 100 MCG) Tab VAG PRN (22:42)
[2021-05-22] MEDS ORDERED: Ampicillin 2 GM Vial ONE (23:21)
[2021-05-22] MEDS ORDERED: Sodium Chloride 0.9% 100 ML ONE (23:23)
[2021-05-22] MEDS: Lactated Ringers 1,000 ML IV SCH (23:31)
[2021-05-23] MEDS: Misoprostol 25 MCG (1/4 of 100 MCG) Tab VAG PRN (02:53)
[2021-05-23] MEDS: Ampicillin 1 GM in Sodium Chloride 0.9% 50 ML IV SCH ×3 (03:30→11:19)
[2021-05-23] MEDS ORDERED: Bupivacaine 0.25% 10 ML SDV ONE (06:48)
[2021-05-23] MEDS ORDERED: Ropivacaine HCl/PF 200 ML ONE (06:48)
[2021-05-23] MEDS: Lactated Ringers 1,000 ML IV SCH (07:11)
--- NOTE | 2021-05-23 07:20 | PCM.PREANE ---
Preanesthetic Assessment - Anesthesia/Transfusion/Family Hx Anesthesia History: Prior Anesthesia Without Reaction Family History of Anesthesia Reaction: No Transfusion History: No Prior Transfusion(s) - Review of Systems General: No Symptoms Pulmonary: No Symptoms Cardiovascular: No Symptoms Gastrointestinal: No Symptoms Neurological: No Symptoms Other: Reports: None - Physical Assessment Height: 5 ft 2.5 in Weight: 187 lb 9.6 oz ASA Class: 2 Mental Status: Alert & Oriented x3 Airway Class: Mallampati = 3 Dentition: Reports: Normal Dentition ROM/Head Extension: Full Lungs: Clear to Auscultation, Normal Respiratory Effort Cardiovascular: Regular Rate, Regular Rhythm - Lab Values: Laboratory Last Values WBC 10.64 K/uL (4.0-11.0) 05/22/21 23:20 RBC 4.04 M/uL (4.30-5.90) L 05/22/21 23:20 Hgb 12.8 g/dL (12.0-16.0) 05/22/21 23:20 Hct 37.1 % (36.0-46.0) 05/22/21 23:20 MCV 91.8 fL (80.0-98.0) 05/22/21 23:20 MCH 31.7 pg (27.0-32.0) 05/22/21 23:20 MCHC 34.5 g/dL (31.0-37.0) 05/22/21 23:20 RDW Std Deviation 48.7 fl (28.0-62.0) 05/22/21 23:20 RDW Coeff of Janina 14 % (11.0-15.0) 05/22/21 23:20 Plt Count 285 K/uL (150-400) 05/22/21 23:20 MPV 10.70 fL (7.40-12.00) 05/22/21 23:20 Nucleated RBC % 0.0 /100WBC 05/22/21 23:20 Nucleated RBCs # 0 K/uL 05/22/21 23:20 Urine Color YELLOW 05/22/21 22:40 Urine Appearance CLEAR 05/22/21 22:40 Urine pH 6.0 (5.0-8.0) 05/22/21 22:40 Ur Specific [place] 1.025 (1.001-1.035) 05/22/21 22:40 Urine Protein NEGATIVE mg/dL (NEGATIVE) 05/22/21 22:40 Urine Glucose (UA) NEGATIVE mg/dL (NEGATIVE) 05/22/21 22:40 Urine Ketones NEGATIVE mg/dL (NEGATIVE) 05/22/21 22:40 Urine Occult Blood NEGATIVE (NEGATIVE) 05/22/21 22:40 Urine Nitrite NEGATIVE (NEGATIVE) 05/22/21 22:40 Urine Bilirubin NEGATIVE (NEGATIVE) 05/22/21 22:40 Urine Urobilinogen 2.0 EU/dL (<2.0) H 05/22/21 22:40 Ur Leukocyte Esterase NEGATIVE (NEGATIVE) 05/22/21 22:40 SARS-CoV-2 RNA (MIKE) NEGATIVE (NEGATIVE) 05/22/21 22:30 Blood Type A POSITIVE 05/22/21 23:20 Antibody Screen NEGATIVE 05/22/21 23:20 - Allergies Allergies/Adverse Reactions: Allergies Allergy/AdvReac Type Severity Reaction Status Date / Time promethazine [From Phenergan] Allergy Hives Verified 10/15/20 23:36 - Blood Blood Available: Yes Product(s) Available: PRBC - Anesthesia Plan Pre-Op Medication Ordered: None - Acknowledgements Anesthesia Type Planned: Epidural Pt an Appropriate Candidate for the Planned Anesthesia: Yes Alternatives and Risks of Anesthesia Discussed w Pt/Guardian: Yes Pt/Guardian Understands and Agrees with Anesthesia Plan: Yes PreAnesthesia Questionnaire - Past Health History Medical/Surgical History: Denies Medical/Surgical History HEENT History: Reports: Other (See Below) Other HEENT History: wears glasses, 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 Hematologic History: Reports: Anemia Immunologic History: Reports: Other (See Below) Other Immunologic History: Hepatitis C positive - Infectious Disease History Infectious Disease History: Reports: Chicken Pox, Hepatitis C, Measles, Mononucleosis, Novel Coronavirus - Past Surgical History Head Surgeries/Procedures: Reports: None HEENT Surgical History: Reports: Other (See Below) Other HEENT Surgeries/Procedures: tooth extraction x 2 during Cardiovascular Surgical History: Reports: None Female Surgical History: Reports: D&C Endocrine Surgical History: Reports: None Neurological Surgical History: Reports: None Musculoskeletal Surgical History: Reports: None - HOME MEDS Home Medications: Home Meds No122/Iron/Folic Acid [ Multi Tablet] 10/15/20 [History] - CURRENT (IN HOUSE) MEDS Current Meds: Current Medications Butorphanol Tartrate (Butorphanol 1 Mg/Ml Sdv) 1 mg IVPUSH Q1H PRN PRN Reason: Pain (severe 7-10) Last Admin: 05/23/21 04:18 Dose: 1 mg Documented by: Carboprost Tromethamine (Carboprost Tromethamine 250 Mcg/1 Ml Amp) 250 mcg IM ASDIRECTED PRN PRN Reason: Post Hemorrhage Oxytocin/Sodium Chloride (Oxytocin 30 Unit/500 Ml-Ns) 30 unit in 500 mls @ 999 mls/hr IV TITRATE [facility] Tranexamic Acid 1,000 mg/ (Sodium Chloride) 110 mls @ 660 mls/hr IV ONETIME PRN PRN Reason: Bleeding Oxytocin/Sodium Chloride (Oxytocin 30 Unit/500 Ml-Ns) 30 unit in 500 mls @ 2 mls/hr IV TITRATE [facility]; Protocol Last Admin: 05/23/21 07:12 Dose: 2 munits/min, 2 mls/hr Documented by: Lactated Ringer's (Ringers, Lactated) 1,000 mls @ 150 mls/hr IV ASDIRECTED [facility] Last Admin: 05/23/21 07:11 Dose: 150 mls/hr Documented by: Ampicillin Sodium 1 gm/ Sodium (Chloride) 50 mls @ 100 mls/hr IV Q4H [facility] Last Admin: 05/23/21 03:30 Dose: 100 mls/hr Documented by: Lidocaine HCl (Lidocaine 1% 50 Ml Mdv) 50 ml INJECT ONETIME PRN PRN Reason: Laceration repair Methylergonovine Maleate (Methylergonovine 0.2 Mg/1 Ml Amp) 0.2 mg IM ASDIRECTED PRN PRN Reason: Post Hemorrhage Misoprostol (Misoprostol 200 Mcg Tab) 200 mcg PO ONETIME PRN PRN Reason: Post Hemorrhage Misoprostol (Misoprostol 25 Mcg (1/4 Of 100 Mcg) Tab) 25 mcg VAG ONETIME PRN PRN Reason: Cervical Ripening Misoprostol (Misoprostol 25 Mcg (1/4 Of 100 Mcg) Tab) 25 mcg VAG Q4H PRN PRN Reason: Cervical Ripening Last Admin: 05/23/21 02:53 Dose: 25 mcg Documented by: Nalbuphine HCl (Nalbuphine 10 Mg/1 Ml Vial) 10 mg IVPUSH Q1H PRN PRN Reason: Pain (severe 7-10) Ondansetron HCl (Ondansetron 4 Mg/2 Ml Sdv) 4 mg IVPUSH Q4H PRN PRN Reason: Nausea/Vomiting Sodium Chloride (Sodium Chloride 0.9% 10 Ml Syringe) 10 ml FLUSH ASDIRECTED PRN PRN Reason: Keep Vein Open Sodium Chloride (Sodium Chloride 0.9% 2.5 Ml Syringe) 2.5 ml FLUSH ASDIRECTED PRN PRN Reason: Keep Vein Open Sodium Chloride (Sodium Chloride 0.9% 10 Ml Sdv) 10 ml IV ASDIRECTED PRN PRN Reason: IV Use Sterile Water (Water For Irrigation,Sterile 1,000 Ml Container) 1,000 ml IRR ASDIRECTED PRN PRN Reason: delivery Terbutaline Sulfate (Terbutaline 1 Mg/Ml Sdv) 0.25 mg SUBCUT ASDIRECTED PRN PRN Reason: Tacysystole Discontinued Medications Ampicillin Sodium (Ampicillin 2 Gm Vial) Confirm Administered Dose 2 gm .ROUTE .STK-MED ONE Stop: 05/22/21 23:22 Bupivacaine HCl (Bupivacaine 0.25% 10 Ml Sdv) Confirm Administered Dose 10 ml .ROUTE .STK-MED ONE Stop: 05/23/21 06:49 Ampicillin Sodium 2 gm/ Sodium (Chloride) 100 mls @ 200 mls/hr IV ONETIME ONE Stop: 05/22/21 21:56 Last Admin: 05/22/21 23:30 Dose: 200 mls/hr Documented by: Sodium Chloride (Normal Saline) Confirm Administered Dose 100 mls @ as directed .ROUTE .STK-MED ONE Stop: 05/22/21 23:24 Ropivacaine (Naropin 0.2%) Confirm Administered Dose 200 mls @ as directed .ROUTE .STK-MED ONE Stop: 08/02/21 06:49 - Pre-Procedure Checklist Attending Provider Aware: Yes Chart Reviewed: Yes Consent Signed: Yes Labs Reviewed: Yes VS/FHR Reviewed: Yes Patient Identification Confirmation Method: Reports: Verbal Patient Pt an Appropriate Candidate for the Planned Anesthesia: Yes Alternatives and Risks of Anesthesia Discussed w Pt/Guardian: Yes - Procedure Procedure Start Date: 05/23/21 Procedure Start Time: 06:[address]: Reports: Blood Pressure, Heart Rate, SPO2 Functional IV: Yes Safety Measures: Reports: Patient Identified, Procedure Verified, Site Verified, Procedure Time Out Patient Position: Reports: Sitting Prep: Reports: Betadine x3, Sterile Drape Local Anesthetic: Reports: Intradermal Wheal w Lidocaine 1% Regional Placement Level: Reports: L3-4 Needle: Reports: 17 g Touhy Approach: Reports: Midline Technique: Reports: WILLEM Plastic Syringe Parasthesia: Reports: None Fluid Obtained: Reports: None Test Dose Time: 07:00 Test Dose Medication: Reports: Lidocaine 1.5% w Epinephrine 1:200,000 Test Dose Response: Reports: Negative Loading Dose Time: 06:59 Loading Dose Medication: bupivicaine0.25% 10cc Loading Dose Patient Position: sitting Continuous Infusion Start Time: 07:05 Continuous Infusion Medication: ropivicaine0.2% Continuous Infusion Rate: 16 Continuous Infusion PCS Bolus Option: 5 Continuous Infusion Lockout Dose (cc/hr): 32 Patient Position Post Placement: Reports: Supline/KEVON VS and FHR Monitored in Unit Post Placement: Yes Procedure End Date: 05/23/21 Procedure End Time: 07:55
[2021-05-23] MEDS ORDERED: Ibuprofen 400 MG Tab PO PRN (14:55)
[2021-05-23] MEDS ORDERED: Docusate Sodium 100 MG Cap PO PRN (14:55)
[2021-05-23] MEDS ORDERED: Lanolin 100% Cream 7 GM Tube TOP PRN (14:55)
[2021-05-23] MEDS ORDERED: Bisacodyl 10 MG Supp RECTAL PRN (14:55)
[2021-05-23] MEDS ORDERED: Benzocaine/Menthol 20%-0.5% Spray 78 GM Cannister TOP PRN (14:55)
[2021-05-23] MEDS ORDERED: Witch Hazel Medicated Pads 40/Jar TOP PRN (14:55)
[2021-05-23] MEDS ORDERED: Acetaminophen 500 MG Tab PO PRN (14:55)
[2021-05-23] MEDS ORDERED: oxyCODONE 5 MG Tab PO PRN (14:55)
--- NOTE | 2021-05-23 15:03 | PCM.DEL ---
L & D Note - General Info Date of Service: 05/23/21 Mother's Due Date: 05/22/21 - Delivery Note Labor: Spontaneous, Augmented by Oxytocin Cervical Ripening Method: Misoprostil Delivery Outcome: Livebirth Delivery Method: Spontaneous Vaginal Delivery-Single Infant Delivery Mode: Spontaneous Presentation: Left Occiput Anterior (PRASANTH) Nuchal Cord: None Anesthesia Type: Epidural Amniotic Fluid Description: Meconium Stained (terminal mec) Episiotomy Type: None Laceration: Labial Suture type: Vicryl Suture size: 3-0 Placenta: Intact, Spontaneous Cord: 3 Vessels Estimated Blood Loss: 200 Resuscitation Needed: No [place]: Suctioned, Stimulated, Warmed, [place] Used Provider: Elvin Shah Score 1 min: 8 Score 5 min: 9 Second Stage Interventions: Reports: Second Nurse Reviewed Contraction Pattern, Second Nurse Reviewed Heart Tones, Encouragement Given, Pushing Effectively, Pushing, McRobert's Position, Pushing, Pulls Own Legs Back, Pushing, Stirrups/Leg Supports - General Info Date of Service: 05/23/21 - Patient Data Weight - Most Recent: 187 lb 9.6 oz Lab Results Last 24 Hours: Laboratory Results - last 24 hr 05/22/21 05/22/21 05/22/21 Range/Units 22:30 22:40 23:20 WBC 10.64 (4.0-11.0) K/uL RBC 4.04 L (4.30-5.90) M/uL Hgb 12.8 (12.0-16.0) g/dL Hct 37.1 (36.0-46.0) % MCV 91.8 (80.0-98.0) fL MCH 31.7 (27.0-32.0) pg MCHC 34.5 (31.0-37.0) g/dL RDW Std Deviation 48.7 (28.0-62.0) fl RDW Coeff of Janina 14 (11.0-15.0) % Plt Count 285 (150-400) K/uL MPV 10.70 (7.40-12.00) fL Nucleated RBC % 0.0 /100WBC Nucleated RBCs # 0 K/uL Urine Color YELLOW Urine Appearance CLEAR Urine pH 6.0 (5.0-8.0) Ur Specific [place] 1.025 (1.001-1.035) Urine Protein NEGATIVE (NEGATIVE) mg/dL Urine Glucose (UA) NEGATIVE (NEGATIVE) mg/dL Urine Ketones NEGATIVE (NEGATIVE) mg/dL Urine Occult Blood NEGATIVE (NEGATIVE) Urine Nitrite NEGATIVE (NEGATIVE) Urine Bilirubin NEGATIVE (NEGATIVE) Urine Urobilinogen 2.0 H (<2.0) EU/dL Ur Leukocyte Esterase NEGATIVE (NEGATIVE) SARS-CoV-2 RNA (MIKE) NEGATIVE (NEGATIVE) Blood Type Antibody Screen 05/22/21 Range/Units 23:20 WBC (4.0-11.0) K/uL RBC (4.30-5.90) M/uL Hgb (12.0-16.0) g/dL Hct (36.0-46.0) % MCV (80.0-98.0) fL MCH (27.0-32.0) pg MCHC (31.0-37.0) g/dL RDW Std Deviation (28.0-62.0) fl RDW Coeff of Janina (11.0-15.0) % Plt Count (150-400) K/uL MPV (7.40-12.00) fL Nucleated RBC % /100WBC Nucleated RBCs # K/uL Urine Color Urine Appearance Urine pH (5.0-8.0) Ur Specific [place] (1.001-1.035) Urine Protein (NEGATIVE) mg/dL Urine Glucose (UA) (NEGATIVE) mg/dL Urine Ketones (NEGATIVE) mg/dL Urine Occult Blood (NEGATIVE) Urine Nitrite (NEGATIVE) Urine Bilirubin (NEGATIVE) Urine Urobilinogen (<2.0) EU/dL Ur Leukocyte Esterase (NEGATIVE) SARS-CoV-2 RNA (MIKE) (NEGATIVE) Blood Type A POSITIVE Antibody Screen NEGATIVE Med Orders - Current: Current Medications Acetaminophen (Acetaminophen 500 Mg Tab) 500 mg PO Q4H PRN PRN Reason: Pain (mild 1-3) Acetaminophen (Acetaminophen 500 Mg Tab) 1,000 mg PO Q4H PRN PRN Reason: Pain (mild 1-3) Benzocaine/Menthol (Benzocaine/Menthol 20%-0.5% [place] 78 Gm Cannister) 78 gm TOP ASDIRECTED PRN PRN Reason: Perineal Comfort Measure Bisacodyl (Bisacodyl 10 Mg Supp) 10 mg RECTAL ONETIME PRN PRN Reason: Constipation Docusate Sodium (Docusate Sodium 100 Mg Cap) 100 mg PO Q12H PRN PRN Reason: Constipation Emollient Ointment (Lanolin 100% Cream 7 Gm Tube) 0 gm TOP ASDIRECTED PRN PRN Reason: Sore Nipples Oxytocin/Sodium Chloride (Oxytocin 30 Unit/500 Ml-Ns) 30 unit in 500 mls @ 2 mls/hr IV TITRATE [facility]; Protocol Last Titration: 05/23/21 13:00 Dose: 8 munits/min, 8 mls/hr Documented by: Ampicillin Sodium 1 gm/ Sodium (Chloride) 50 mls @ 100 mls/hr IV Q4H [facility] Last Admin: 05/23/21 11:19 Dose: 100 mls/hr Documented by: Ibuprofen (Ibuprofen 400 Mg Tab) 400 mg PO Q4H PRN PRN Reason: Pain (mild 1-3) Ibuprofen (Ibuprofen 800 Mg Tab) 800 mg PO Q6H PRN PRN Reason: Pain (mild 1-3) Misoprostol (Misoprostol 25 Mcg (1/4 Of 100 Mcg) Tab) 25 mcg VAG ONETIME PRN PRN Reason: Cervical Ripening Misoprostol (Misoprostol 25 Mcg (1/4 Of 100 Mcg) Tab) 25 mcg VAG Q4H PRN PRN Reason: Cervical Ripening Last Admin: 05/23/21 02:53 Dose: 25 mcg Documented by: Oxycodone HCl (Oxycodone 5 Mg Tab) 5 mg PO Q2H PRN PRN Reason: Pain (severe 7-10) Sodium Chloride (Sodium Chloride 0.9% 10 Ml Syringe) 10 ml FLUSH ASDIRECTED PRN PRN Reason: Keep Vein Open Sodium Chloride (Sodium Chloride 0.9% 2.5 Ml Syringe) 2.5 ml FLUSH ASDIRECTED PRN PRN Reason: Keep Vein Open Sodium Chloride (Sodium Chloride 0.9% 10 Ml Sdv) 10 ml IV ASDIRECTED PRN PRN Reason: IV Use Terbutaline Sulfate (Terbutaline 1 Mg/Ml Sdv) 0.25 mg SUBCUT ASDIRECTED PRN PRN Reason: Tacysystole Witch Yulia (Witch Yulia Medicated Pads 40/Jar) 1 pad TOP ASDIRECTED PRN PRN Reason: comfort care Discontinued Medications Ampicillin Sodium (Ampicillin 2 Gm Vial) Confirm Administered Dose 2 gm .ROUTE .STK-MED ONE Stop: 05/22/21 23:22 Bupivacaine HCl (Bupivacaine 0.25% 10 Ml Sdv) Confirm Administered Dose 10 ml .ROUTE .[facility]-MED ONE Stop: 05/23/21 06:49 Butorphanol Tartrate (Butorphanol 1 Mg/Ml Sdv) 1 mg IVPUSH Q1H PRN PRN Reason: Pain (severe 7-10) Last Admin: 05/23/21 04:18 Dose: 1 mg Documented by: Carboprost Tromethamine (Carboprost Tromethamine 250 Mcg/1 Ml Amp) 250 mcg IM ASDIRECTED PRN PRN Reason: Post Hemorrhage Oxytocin/Sodium Chloride (Oxytocin 30 Unit/500 Ml-Ns) 30 unit in 500 mls @ 999 mls/hr IV TITRATE [facility] Tranexamic Acid 1,000 mg/ (Sodium Chloride) 110 mls @ 660 mls/hr IV ONETIME PRN PRN Reason: Bleeding Ampicillin Sodium 2 gm/ Sodium (Chloride) 100 mls @ 200 mls/hr IV ONETIME ONE Stop: 05/22/21 21:56 Last Admin: 05/22/21 23:30 Dose: 200 mls/hr Documented by: Lactated Ringer's (Ringers, Lactated) 1,000 mls @ 150 mls/hr IV ASDIRECTED [facility] Last Admin: 05/23/21 07:11 Dose: 150 mls/hr Documented by: Sodium Chloride (Normal Saline) Confirm Administered Dose 100 [facility]ls @ as [facility] Stop: 05/22/21 23:24 Ropivacaine (Naropin 0.2%) Confirm Administered Dose 200 mls @ as directed [facility] Stop: 05/23/21 06:49 Lidocaine HCl (Lidocaine 1% 50 Ml Mdv) 50 ml INJECT ONETIME PRN PRN Reason: Laceration repair Methylergonovine Maleate (Methylergonovine 0.2 Mg/1 Ml Amp) 0.2 mg IM ASDIRECTED PRN PRN Reason: Post Hemorrhage Misoprostol (Misoprostol 200 Mcg Tab) 200 mcg PO ONETIME PRN PRN Reason: Post Hemorrhage Nalbuphine HCl (Nalbuphine 10 Mg/1 Ml Vial) 10 mg IVPUSH Q1H PRN PRN Reason: Pain (severe 7-10) Ondansetron HCl (Ondansetron 4 Mg/2 Ml Sdv) 4 mg IVPUSH Q4H PRN PRN Reason: Nausea/Vomiting Last Admin: 05/23/21 08:24 Dose: 4 mg Documented by: Sterile Water (Water For Irrigation,Sterile 1,000 Ml Container) 1,000 ml IRR ASDIRECTED PRN PRN Reason: delivery - Problem List & Annotations (1) Vaginal delivery SNOMED Code(s): 150126650 Code(s): O80 - ENCOUNTER FOR FULL-TERM UNCOMPLICATED DELIVERY Status: Acute Current Visit: Yes (2) Group B streptococcal infection in SNOMED Code(s): 265211062 Code(s): O98.819 - OTH MATERNAL INFEC/PARASTC DISEASES COMP PREG, UNSP TRI; B95.1 - STREPTOCOCCUS, GROUP B, CAUSING DISEASES CLASSD [id number] Status: Acute Current Visit: Yes (3) Hepatitis C virus infection SNOMED Code(s): 00874063 Code(s): B19.20 - UNSPECIFIED VIRAL HEPATITIS C WITHOUT HEPATIC COMA Status: Acute Current Visit: Yes - Problem List Review Problem List Initiated/Reviewed/Updated: Yes - Assessment Assessment:: Pt is a 36yo G4 now P1031 s/p of live male at 40w1d gestation. complicated by Hepatitis C infection with viral load of 151,000 on 04/28/21. - Plan Plan:: Routine cares. Rh+, rubella immune, GBS+ treated with 4 doses of ampicillin Regular diet as tolerated Encourage ambulation and fluid intake when able Breast feeding nursing assistance prn Hepatitis C infection: viral load 151,000 on 04/28/21 Dispo: stable, admit to , anticipated routine PP cares with discharge 24-48 hours post delivery
[2021-05-23] MEDS: Ibuprofen 800 MG Tab PO PRN (18:37)
[2021-05-23] MEDS: Acetaminophen 500 MG Tab PO PRN (18:38)
[2021-05-24] MEDS: Acetaminophen 500 MG Tab PO PRN (01:03)
[2021-05-24] MEDS: Ibuprofen 800 MG Tab PO PRN ×3 (01:05→15:23)
--- NOTE | 2021-05-24 09:56 | PCM.PNPP ---
- General Info Date of Service: 05/24/21 Functional Status: Reports: Pain Controlled, Tolerating Diet, Ambulating, Urinating - Review of Systems General: Reports: No Symptoms HEENT: Reports: No Symptoms Pulmonary: Reports: No Symptoms Cardiovascular: Reports: No Symptoms Gastrointestinal: Reports: No Symptoms Genitourinary: Reports: No Symptoms Musculoskeletal: Reports: No Symptoms Skin: Reports: No Symptoms Neurological: Reports: No Symptoms Psychiatric: Reports: No Symptoms - Patient Data Vital Signs - Most Recent: Last Vital Signs Temp 36.5 C 05/24/21 08:25 Pulse 68 05/24/21 08:25 Resp 18 05/24/21 08:25 BP 99/62 05/24/21 08:25 Pulse Ox 96 05/24/21 08:25 Weight - Most Recent: 187 lb 9.6 oz Lab Results - Last 24 Hours: Laboratory Results - last 24 hr 05/23/21 05/23/21 05/24/21 Range/Units 14:40 14:40 05:30 Hgb 11.4 L (12.0-16.0) g/dL Hct 34.4 L (36.0-46.0) % Cord ABG pH 7.189 (7.18-7.38) Cord ABG Base Excess -7 (-10--2) Cord VBG pH 7.284 (7.25-7.45) Cord VBG Base Excess -3 (-10--2) Med Orders - Current: Current Medications Acetaminophen (Acetaminophen 500 Mg Tab) 500 mg PO Q4H PRN PRN Reason: Pain (mild 1-3) Acetaminophen (Acetaminophen 500 Mg Tab) 1,000 mg PO Q4H PRN PRN Reason: Pain (mild 1-3) Last Admin: 05/24/21 01:03 Dose: 1,000 mg Documented by: Benzocaine/Menthol (Benzocaine/Menthol 20%-0.5% [place] 78 Gm Cannister) 78 gm TOP ASDIRECTED PRN PRN Reason: Perineal Comfort Measure Last Admin: 05/23/21 18:39 Dose: 1 can Documented by: Bisacodyl (Bisacodyl 10 Mg Supp) 10 mg RECTAL ONETIME PRN PRN Reason: Constipation Docusate Sodium (Docusate Sodium 100 Mg Cap) 100 mg PO Q12H PRN PRN Reason: Constipation Last Admin: 05/24/21 08:23 Dose: 100 mg Documented by: Emollient Ointment (Lanolin 100% Cream 7 Gm Tube) 0 gm TOP ASDIRECTED PRN PRN Reason: Sore Nipples Last Admin: 05/23/21 18:39 Dose: 1 applic Documented by: Ibuprofen (Ibuprofen 400 Mg Tab) 400 mg PO Q4H PRN PRN Reason: Pain (mild 1-3) Ibuprofen (Ibuprofen 800 Mg Tab) 800 mg PO Q6H PRN PRN Reason: Pain (mild 1-3) Last Admin: 05/24/21 08:22 Dose: 800 mg Documented by: Oxycodone HCl (Oxycodone 5 Mg Tab) 5 mg PO Q2H PRN PRN Reason: Pain (severe 7-10) Sodium Chloride (Sodium Chloride 0.9% 10 Ml Syringe) 10 ml FLUSH ASDIRECTED PRN PRN Reason: Keep Vein Open Sodium Chloride (Sodium Chloride 0.9% 2.5 Ml Syringe) 2.5 ml FLUSH ASDIRECTED PRN PRN Reason: Keep Vein Open Sodium Chloride (Sodium Chloride 0.9% 10 Ml Sdv) 10 ml IV ASDIRECTED PRN PRN Reason: IV Use Witch Yulia (Witch Yulia Medicated Pads 40/Jar) 1 pad TOP ASDIRECTED PRN PRN Reason: comfort care Last Admin: 05/23/21 18:38 Dose: 1 canister Documented by: Discontinued Medications Ampicillin Sodium (Ampicillin 2 Gm Vial) Confirm Administered Dose 2 gm .ROUTE .STK-MED ONE Stop: 05/22/21 23:22 Bupivacaine HCl (Bupivacaine 0.25% 10 Ml Sdv) Confirm Administered Dose 10 ml .ROUTE .STK-MED ONE Stop: 05/23/21 06:49 Butorphanol Tartrate (Butorphanol 1 Mg/Ml Sdv) 1 mg IVPUSH Q1H PRN PRN Reason: Pain (severe 7-10) Last Admin: 05/23/21 04:18 Dose: 1 mg Documented by: Carboprost Tromethamine (Carboprost Tromethamine 250 Mcg/1 Ml Amp) 250 mcg IM ASDIRECTED PRN PRN Reason: Post Hemorrhage Oxytocin/Sodium Chloride (Oxytocin 30 Unit/500 Ml-Ns) 30 unit in 500 mls @ 999 mls/hr IV TITRATE MALORIE Tranexamic Acid 1,000 mg/ (Sodium Chloride) 110 mls @ 660 mls/hr IV ONETIME PRN PRN Reason: Bleeding Oxytocin/Sodium Chloride (Oxytocin 30 Unit/500 Ml-Ns) 30 unit in 500 mls @ 2 mls/hr IV TITRATE MALORIE; Protocol Last Titration: 05/23/21 13:00 Dose: 8 munits/min, 8 mls/hr Documented by: Ampicillin Sodium 2 gm/ Sodium (Chloride) 100 mls @ 200 mls/hr IV ONETIME ONE Stop: 05/22/21 21:56 Last Admin: 05/22/21 23:30 Dose: 200 mls/hr Documented by: Lactated Ringer's (Ringers, Lactated) 1,000 mls @ 150 mls/hr IV ASDIRECTED MALORIE Last Admin: 05/23/21 07:11 Dose: 150 mls/hr Documented by: Sodium Chloride (Normal Saline) Confirm Administered Dose 100 mls @ as directed .ROUTE .STK-MED ONE Stop: 05/22/21 23:24 Ampicillin Sodium 1 gm/ Sodium (Chloride) 50 mls @ 100 mls/hr IV Q4H [facility] Last Admin: 05/23/21 11:19 Dose: 100 mls/hr Documented by: Ropivacaine (Naropin 0.2%) Confirm Administered Dose 200 mls @ as directed .ROUTE .STK-MED ONE Stop: 05/23/21 06:49 Lidocaine HCl (Lidocaine 1% 50 Ml Mdv) 50 ml INJECT ONETIME PRN PRN Reason: Laceration repair Methylergonovine Maleate (Methylergonovine 0.2 Mg/1 Ml Amp) 0.2 mg IM ASDIRE CTED PRN PRN Reason: Post Hemorrhage Misoprostol (Misoprostol 200 Mcg Tab) 200 mcg PO ONETIME PRN PRN Reason: Post Hemorrhage Misoprostol (Misoprostol 25 Mcg (1/4 Of 100 Mcg) Tab) 25 mcg VAG ONETIME PRN PRN Reason: Cervical Ripening Misoprostol (Misoprostol 25 Mcg (1/4 Of 100 Mcg) Tab) 25 mcg VAG Q4H PRN PRN Reason: Cervical Ripening Last Admin: 05/23/21 02:53 Dose: 25 mcg Documented by: Nalbuphine HCl (Nalbuphine 10 Mg/1 Ml Vial) 10 mg IVPUSH Q1H PRN PRN Reason: Pain (severe 7-10) Ondansetron HCl (Ondansetron 4 Mg/2 Ml Sdv) 4 mg IVPUSH Q4H PRN PRN Reason: Nausea/Vomiting Last Admin: 05/23/21 08:24 Dose: 4 mg Documented by: Sterile Water (Water For Irrigation,Sterile 1,000 Ml Container) 1,000 ml IRR ASDIRECTED PRN PRN Reason: delivery Terbutaline Sulfate (Terbutaline 1 Mg/Ml Sdv) 0.25 mg SUBCUT ASDIRECTED PRN PRN Reason: Tacysystole - Interaction Disposition, : [place] at Bedside Interaction: Holding Infant Feeding: Breastfed Infant; Nursed Well Support Person: - Recovery Exam Fundal Tone: Firm Fundal Level: 1 Fingerbreadths Below Umbilicus Fundal Placement: Midline Lochia Amount: Scant Lochia Color: Rubra/Red Perineum Description: Other (see below) Other Perinuem Description: 1st degree laceration Episiotomy/Laceration: Approximated Bladder Status: Voiding Urinary Elimination: Voided - Exam General: Alert, Oriented, Cooperative, No Acute Distress HEENT: Pupils Equal, Pupils Reactive, EOMI Neck: Supple, Trachea Midline, No JVD Lungs: Normal Respiratory Effort GI/Abdominal Exam: Soft, Non-Tender, No Distention Extremities: Normal Inspection, Normal Range of Motion, Non-Tender, No Pedal Edema Skin: Warm, Dry, Intact Wound/Incisions: Healing Well Neurological: No New Focal Deficit Psy/Mental Status: Alert, Normal Affect, Normal Mood - Problem List Review Problem List Initiated/Reviewed/Updated: Yes - My Orders Last 24 Hours: My Active Orders 05/23/21 14:55 May Shower [RC] ASDIRECTED Up ad Sugey [RC] ASDIRECTED Acetaminophen [Tylenol Extra Strength] 1,000 mg PO Q4H PRN Acetaminophen [Tylenol Extra Strength] 500 mg PO Q4H PRN Benzocaine/Menthol [Dermoplast Pain Relief 20%-0.5% [place]] 78 gm TOP ASDIRECTED PRN Docusate Sodium [Colace] 100 mg PO Q12H PRN Ibuprofen [Motrin] 400 mg PO Q4H PRN Ibuprofen [Motrin] 800 mg PO Q6H PRN Lanolin [Lansinoh HPA] See Dose Instructions TOP ASDIRECTED PRN bisacodyL [Dulcolax] 10 mg RECTAL ONETIME PRN oxyCODONE 5 mg PO Q2H PRN nestor Yulia [Tucks] 1 pad TOP ASDIRECTED PRN Assess Lochia [WOMSER] Per Unit Routine Assess Uterine Involution [WOMSER] Per Unit Routine Perineal Care [OM.PC] Per Unit Routine Peripheral IV Discontinue [OM.PC] Routine 05/23/21 14:56 Ice Therapy [OM.PC] Per Unit Routine - Assessment Assessment:: Pt is a 36yo PPD1 s/p of live male at 40w1d gestation. complicated by Hepatitis C infection, AMA and marginal cord insertion - Plan Plan:: Routine care. Vitals stable Bleeding now light, Hgb 11.3. Rh+, rubella immune, GBS+ treated with 4 doses of ampicillin Regular diet as tolerated. Encourage ambulation Breast feeding nursing assistance prn Hepatitis C infection: follow up with GI Dispo: stable, plan for discharge home today, reviewed care instructions
--- NOTE | 2021-05-24 12:59 | OR ---
SURGEON: Elvin Shah MD DATE OF PROCEDURE: 05/23/2021 INDICATION FOR PROCEDURE: 36-year-old G2, P0-0-1-0, at 40 weeks and 0 days, presented for scheduled induction of labor. The patient's was complicated by hepatitis C. She had a prior partner with history of IV drug use. Her viral load was slowly increasing with the most recent one at 151,000. She was referred to GI and reviewed options of treatment with her, plans to complete treatment . She also has advanced maternal age. She was evaluated by Perinatology and found to have mild ventriculomegaly and marginal cord insertion. She had serial growth ultrasounds and weekly testing that was reassuring. She is GBS positive and received ampicillin for GBS prophylaxis. She received three doses of Cytotec for induction and began making cervical change to 2 to 3 cm. She also started jack regularly. She received an epidural with good pain control. She had spontaneous rupture of membranes with clear fluid. Pitocin was then started for induction and she progressed quickly to fully dilated and having the urge to push. The baby is category 1 tracing. PREOPERATIVE DIAGNOSES: 1. Iniguez intrauterine at 40 weeks and 0 days. 2. Hepatitis C. 3. Advanced maternal age. 4. Marginal cord insertion. 5. ventriculomegaly 6. Active labor. POSTOPERATIVE DIAGNOSES: 1. Iniguez intrauterine at 40 weeks and 0 days. 2. Hepatitis C. 3. Advanced maternal age. 4. Marginal cord insertion. 5. ventriculomegaly 6. Active labor. PROCEDURE PERFORMED: Normal spontaneous vaginal delivery, repair of labial lacerations. HEARING AID SPECIALIST: Little Guerra MS4 ANESTHESIA: Epidural. ANESTHESIOLOGIST: Dr. Rigo Frederick. FINDINGS: Viable male , scores of 8 and 9, weight 3230g. DESCRIPTION OF PROCEDURE: The patient pushed with contractions for approximately 2 hours and 50 minutes. She initially made progress slowly. She was finding it difficult to push because she did not have any sensation due to the epidural. Therefore, epidural was turned off and multiple positions were used to help descent. She had decels to the 90s with contractions which recovered between contraction. The baby delivered in occiput anterior position over intact perineum, restituted ROT. Anterior shoulder was delivered easily with compound presentation of the right arm. No nuchal cord was noted. Posterior shoulder and body delivered easily. The baby was placed on the maternal chest and evaluated by awaiting nursery staff. Baby was pink, crying, and moving all extremities after delivery. The umbilical cord was clamped and cut after 60 seconds and no longer pulsating. Umbilical cord gases were obtained. The placenta was removed with gentle traction on the umbilical cord. Perineum was examined and she had superficial labial lacerations bilaterally. They were repaired with 3-0 Vicryl in interrupted fashion. Hemostasis was confirmed. Fundal massage was performed. She had a small gush of blood and was firm and below the umbilicus. care instructions were reviewed. She tolerated the procedure well. RAKESH MAYFIELD /[id number]
== END 2021-05-24 17:27 | disposition home or self-care (01) | DRG 806 ==
LOC: MW.OBCHECK 20:24 → MW.OB 20:24 → MW.OBCHECK 21:15 → MW.OB 21:15 → OBSVTOIN 05-23 14:40 → MW.OB 05-23 18:30
PROVIDERS: ADMIT Obstetrics & Gynecology; ATTEND Obstetrics & Gynecology
PROC: 10E0XZZ Delivery of Products of Conception, External Approach (ICD-10-PCS; principal; 2021-05-23)
PROC: 10907ZC Drainage of Amniotic Fluid, Therapeutic from Products of Conception, Via Natural or Artificial Opening (ICD-10-PCS; 2021-05-23)
PROC: 0HQ9XZZ Repair Perineum Skin, External Approach (ICD-10-PCS; 2021-05-23)
PROC: 3E0P7VZ Introduction of Hormone into Female Reproductive, Via Natural or Artificial Opening (ICD-10-PCS; 2021-05-23)
PROC: 3E0R3BZ Introduction of Anesthetic Agent into Spinal Canal, Percutaneous Approach (ICD-10-PCS; 2021-05-23)
DX: O99.824 Streptococcus B carrier state complicating childbirth (principal); O98.42 Viral hepatitis complicating childbirth; Z37.0 Single live birth; O77.0 Labor and delivery complicated by meconium in amniotic fluid; Z3A.40 40 weeks gestation of pregnancy; B19.20 Unspecified viral hepatitis C without hepatic coma; Z20.822 Contact with and (suspected) exposure to COVID-19
CPT/HCPCS: 01967; 36415; 51702; 59025; 59409; 81003; 82803; 85014; 85018; 85027; 86592; 86850; 86900; 86901; A9270-GY; J0290; J0595; J2405; J2590; J2795; J3490; J7120; U0002